=== PATIENT | male | born 1950 | race Caucasian/White ===

== ENCOUNTER 2018-05-19 16:01 | Inpatient (IN) ==
[2018-05-19] MEDS ORDERED: Ringers Solution, Lactated 1,000 ML IVC SCH (17:30)
[2018-05-19] MEDS ORDERED: *HR* HYDROcodone/Acet 5/325 mg TABLET PO PRN (17:37)
[2018-05-19] MEDS ORDERED: Furosemide 40 MG/4 ML VIAL IVP STA (17:42)
[2018-05-19 17:56] LABS: Basophils # 0.1 K/mcL (0.0-0.2); Basophils % 0.9 %; Eosinophils # 0.2 K/mcL (0.0-0.6); Eosinophils % 1.2 %; Hematocrit 37.4 % (37.5-50.1); Hemoglobin 12.4 g/dL (12.9-16.9); Immature Granulocytes % 1.1 % (0-4); Lymphocytes # 1.2 K/mcL (0.6-4.6); Lymphocytes % 9.9 %; Mean Corpuscular HGB Conc 33.2 g/dL (31.6-35.5); Mean Corpuscular Hemoglobin 35.7 pg (28.0-33.3); Mean Corpuscular Volume 107.8 fL (83.0-100.0); Mean Platelet Volume 9.7 fL (9.4-12.4); Monocytes % 8.3 %; Neutrophils # 9.5 K/mcL (1.6-8.9); Nucleated Red Blood Cells 0.4 /100 WBC (0); Platelet Count 228 K/mcL (140-400); Red Blood Count 3.47 M/mcL (4.19-5.50); Red Cell Distribution Width 13.2 % (11.5-14.5); Segmented Neutrophils % 78.6 %
[2018-05-19 18:06] LABS: INR 3.1; Prothrombin Time 35.4 Seconds (9.4-12.1)
[2018-05-19 18:15] LABS: Blood Urea Nitrogen 22 mg/dL (8-23); eGFR For Non-African Americans 54 (> 60)
--- NOTE | 2018-05-19 19:14 | General Surg History&Physical ---
Date of Encounter: 05/19/18 Time of Encounter: 18:52 History of Present Illness Chief complaint: Necrotic wound suprapubic anterior abdominal wall HPI: Mr. Espino is a 67 year old morbidly obese male who presents to my office for continued follow-up serous drainage from the infraumbilical port site. Drainage has diminished. Infraumbilical port site appears to be slowly healing. He is approximately 4 weeks status post laparoscopic cholecystectomy after presenting with severe left sided chest and upper abdominal pain. Those symptoms have subsided since the patient's cholecystectomy but the patient has since developed a slowly increasing necrotic, painful wound suprapubic abdomen. This is located remote to the port sites used to complete the cholecystectomy. Those port sites are located in the infraumbilical abdomen, mid epigastrium, and 3 in the subcostal right upper abdomen. The necrotic wound will require debridement, which is scheduled in the a.m. pending reversal of his anticoagulation Past medical history: Atrial fibrillation requiring chronic anticoagulation; morbid obesity; hypertension; multiple artificial joints; chronic respiratory failure/hypoxia requiring home oxygen; obstructive sleep apnea (CPAP 8); and chronic cholecystitis recently treated via laparoscopic cholecystectomy Allergies: Penicillin Medications: Hydrocodone with acetaminophen 5/325 one every 6 hours as needed for pain Naprosyn 500 mg by mouth twice a day Cardizem 180 mg by mouth twice a day Metoprolol 150 mg by mouth daily Flomax 0.4 mg by mouth daily Zantac 150 mg by mouth twice a day Warfarin 5.5-7.5 mg by mouth daily Lisinopril 20 mg by mouth daily Digoxin 0.125 mg by mouth daily Lasix dose not specified, once daily Viagra 100 mg by mouth daily Surgical history: Excision hyperkeratotic lesion right nose 1999; bilateral equal hernia repair in 1668; pacesetter 2011; left shoulder/rotator cuff repair; bilateral knee arthroscopy left knee 2 right knee 3 followed by right total knee replacement 2012. Carpal tunnel release bilaterally; EGD June 2017; colonoscopy last completed 11/2005; laparoscopic cholecystectomy, 04/19/18 Social history: Patient is , lives with his spouse. He is a current every day smoker using smokeless tobacco. He admits to one can per day for greater than 40 years; patient also consumes beer and/or heart alcohol once weekly. Patient does not admit to any illicit drug use. Physical examination: Obese, age-appropriate male in distress related to his lower abdominal pain. He is 1.83 m tall, 152.5 kg; BMI 45.6 Vital signs on admission are still pending at the time of this dictation Skin: Warm, no obvious jaundice Lungs: Clear, no abdominal pain deep inspiration Cardiac: Irregular rate, approximately 80 bpm Abdomen: Obese, bowel sounds. Approximately a 4 cm round necrotic wound suprapubic anterior abdominal wall - this lesion is excised exquisitely tender. The dependent portion of the abdomen demonstrates edema and port [place] consistent with extensive or excessive subcutaneous fluid. Port sites: Infraumbilical, mid epigastric, epigastric, and 2 along the right costal margin appeared to be intact. The infraumbilical port is draining a small amount of serous, alvin fluid Extremities: 1+ pitting edema to the knees Laboratories: White count 12.1, neutrophils 9.5 hemoglobin 12.4, hematocrit 37.4, platelets 228,000 PT 35.4, INR 3.1 BUN 22, creatinine 1.32 (creatinine 1.27 on 01/30/18) CT abdomen and pelvis completed 05/16/18 was reviewed with [facility] this AM - Findings include: Infraumbilical fluid and induration; liver, spleen, pa ncreas, and left adrenal appear normal; a stable heterogeneous fatty right adrenal mass measuring 82 x 48 mm consistent with a myelolipoma; gallbladder is surgically absent with evidence of a hematoma in the gallbladder fossa; there is fluid surrounding the liver and spleen consistent with ascites. Impression: 67-year-old morbidly obese patient of Dr. Lane, presents to my office for continued post operative follow-up laparoscopic cholecystectomy completed 04/19/18. Patient has had copious serous drainage from the infraumbilical port site which has regressed over the last week. The patient now presents with a painful approximately 4 cm, suprapubic, necrotic wound anterior abdominal wall which will require debridement. The patient is chronically anticoagulated with warfarin, he is currently supratherapeutic with PT 35.4, INR 3.1 Aggressive reversal of this will be completed this evening with fresh frozen plasma in preparation for surgery in the a.m. Risks of debridement include hemorrhage, infection, failure to heal, and continued infection/necrosis. The patient is at additional risk for respiratory failure and cardiac dysrhythmia. Surgical consent was discussed in detail in my office prior to his direct admit to [facility]. A signed consent with admission orders has been sent to [facility] with the patient patient to [facility]. Past Med Surg Social Fam HX - Past Medical History Medical history: hypertension Additional medical history: A. FIB, SLEEP APNEA, BPH, OSTEOARTHRITIS, JOSÉ, GERD, ROTATOR CUFF Psychiatric history: no psych history - Past Surgical History Surgical History: herniorrhaphy, orthopedic, other, pacemaker/AICD, other Additional surgical history: t&a, REPAIR OF KNEE, KNEE ARTHROPLASTY, ANDRY INGUINAL HERNIA, COLONOSCOPY, RIGHT TKR, PACEMAKER - Social History Smoking Status: Never smoker Smokeless Tobacco Status: No Alcohol use: none Drug use: none Medications and Allergies Digoxin [Lanoxin] 0.125 mg PO DAILY 07/08/17 [History] Diltiazem CD (24hr) [Cardizem CD] 180 mg PO DAILY 07/08/17 [History] HYDROcodone/Acet 5/325 mg [Errol 5-325 mg] 1 tab PO Q6H PRN 07/08/17 [History] Lisinopril [Zestril] 20 mg PO DAILY 07/08/17 [History] Metoprolol Succinate 100 mg PO DAILY 07/08/17 [History] Metoprolol XL (24 HR) Succ [Toprol Xl] 50 mg PO DAILY 07/08/17 [History] Multivitamin [One Daily Essential] 1 tab PO DAILY 07/08/17 [History] Mv-Min/FA/Vit K/Lycop/Lut/Zeax [Ocuvite Eye Plus Multi Tablet] 1 tab PO DAILY 07/08/17 [History] Naproxen [Naprosyn] 500 mg PO BID 07/08/17 [History] Tamsulosin [Flomax] 0.4 mg PO HS 07/08/17 [History] Warfarin [Coumadin] 5 mg PO AD 07/08/17 [History] raNITIdine HCl [Zantac] 150 mg PO BID 07/08/17 [History] Citalopram Hydrobromide [Citalopram HBr] 20 mg PO DAILY 04/19/18 [History] Doxycycline Hyclate [Morgidox] 100 mg PO DAILY 04/19/18 [History] Furosemide [Lasix] 40 mg PO DAILY 04/19/18 [History] Sildenafil Citrate [Revatio] 20 mg PO TID 10/31/18 [History] Allergy/AdvReac Type Severity Reaction Status Date / Time Penicillins [PCN] Allergy See Verified 07/08/17 11:17 Comments Review of Systems All systems PM: The remainder of the systems were reviewed and are negative Results - Labs 05/19/18 17:43 05/19/18 17:43 Abnormal lab results WBC 12.1 K/mcL (4.3-11.1) H 05/19/18 17:43 RBC 3.47 M/mcL (4.19-5.50) L 05/19/18 17:43 Hgb 12.4 g/dL (12.9-16.9) L 05/19/18 17:43 Hct 37.4 % (37.5-50.1) L 05/19/18 17:43 MCV 107.8 fL (83.0-100.0) H 05/19/18 17:43 MCH 35.7 pg (28.0-33.3) H 05/19/18 17:43 Neutrophils # 9.5 K/mcL (1.6-8.9) H 05/19/18 17:43 Nucleated RBCs/100 WBC 0.4 /100 WBC (0) H 05/19/18 17:43 PT 35.4 Seconds (9.4-12.1) H 05/19/18 17:43 Creatinine 1.32 mg/dL (0.70-1.30) H 05/19/18 17:43 Est GFR (Non-Af Amer) 54 (> 60) L 05/19/18 17:43 Diabetes panel 05/19/18 05/19/18 Range/Units 17:43 17:43 BUN 22 (8-23) mg/dL Creatinine 1.32 H (0.70-1.30) mg/dL Pituitary panel 05/19/18 05/19/18 Range/Units 17:43 17:43 BUN 22 (8-23) mg/dL Creatinine 1.32 H (0.70-1.30) mg/dL Adrenal panel 05/19/18 05/19/18 Range/Units 17:43 17:43 BUN 22 (8-23) mg/dL Creatinine 1.32 H (0.70-1.30) mg/dL All other labs normal.
[2018-05-19] MEDS ORDERED: Levofloxacin 750 MG/150 ML 750 MG/150 ML BAG IVPB SCH (20:00)
[2018-05-19] MEDS ORDERED: Diltiazem CD (24hr) 180 MG CAPSULE PO SCH (21:00)
[2018-05-19] MEDS ORDERED: 0.9 % Sodium Chloride 250 ML ONE (21:38)
[2018-05-20] MEDS ORDERED: 0.9 % Sodium Chloride 250 ML ONE ×2 (01:43→08:10)
[2018-05-20 04:48] LABS: Basophils # 0.1 K/mcL (0.0-0.2); Basophils % 0.9 %; Eosinophils # 0.2 K/mcL (0.0-0.6); Eosinophils % 1.8 %; Hematocrit 33.8 % (37.5-50.1); Hemoglobin 11.5 g/dL (12.9-16.9); Immature Granulocytes % 0.8 % (0-4); Lymphocytes % 9.7 %; Mean Corpuscular Hemoglobin 36.1 pg (28.0-33.3); Mean Platelet Volume 9.8 fL (9.4-12.4); Monocytes % 8.9 %; Neutrophils # 8.4 K/mcL (1.6-8.9); Nucleated Red Blood Cells 0.3 /100 WBC (0); Platelet Count 213 K/mcL (140-400); Red Blood Count 3.19 M/mcL (4.19-5.50); Red Cell Distribution Width 13.2 % (11.5-14.5); Segmented Neutrophils % 77.9 %
[2018-05-20 04:55] LABS: INR 2.6; Prothrombin Time 28.9 Seconds (9.4-12.1)
[2018-05-20 05:07] LABS: BUN/Creatinine Ratio 18 (6-26); Blood Urea Nitrogen 22 mg/dL (8-23); Calcium 8.6 mg/dL (8.6-10.3); Carbon Dioxide 29 mEq/L (23-29); Chloride 102 mEq/L (98-107); Glucose 119 mg/dL (70-105); Osmolality,Calculated 292 (280-300); Potassium 3.8 mEq/L (3.5-5.1); Sodium 139 mEq/L (136-145); eGFR For Non-African Americans > 60 (> 60)
--- NOTE | 2018-05-20 08:09 | Anesthesia Evaluation PreOp ---
Date of Encounter: 05/20/18 Time of Encounter: 09:10 - Past History Planned Operation: Abdominal wall debridement Cardiac History: Arrhythmia, Pacemaker/ICD Pulmonary History: COPD, JOSÉ Dx FIELD SERVICE SPECIALIST History: Denies Any Significant HX Other Medical History: GERD, Other (BMI 47) Anesthesia History: No Prior Anesthetic Complications, Past Anesthesia Alcohol Use: none, rarely, occasionally Drug use: none Medications and Allergies Digoxin [Lanoxin] 0.125 mg PO DAILY 07/08/17 [History] Diltiazem CD (24hr) [Cardizem CD] 180 mg PO DAILY 07/08/17 [History] HYDROcodone/Acet 5/325 mg [Art 5-325 mg] 1 tab PO Q6H PRN 07/08/17 [History] Lisinopril [Zestril] 20 mg PO DAILY 07/08/17 [History] Metoprolol Succinate 100 mg PO DAILY 07/08/17 [History] Metoprolol XL (24 HR) Succ [Toprol Xl] 50 mg PO DAILY 07/08/17 [History] Multivitamin [One Daily Essential] 1 tab PO DAILY 07/08/17 [History] Mv-Min/FA/Vit K/Lycop/Lut/Zeax [Ocuvite Eye Plus Multi Tablet] 1 tab PO DAILY 07/08/17 [History] Naproxen [Naprosyn] 500 mg PO BID 07/08/17 [History] Tamsulosin [Flomax] 0.4 mg PO HS 07/08/17 [History] Warfarin [Coumadin] 5 mg PO AD 07/08/17 [History] raNITIdine HCl [Zantac] 150 mg PO BID 07/08/17 [History] Citalopram Hydrobromide [Citalopram HBr] 20 mg PO DAILY 04/19/18 [History] Doxycycline Hyclate [Morgidox] 100 mg PO DAILY 04/19/18 [History] Furosemide [Lasix] 40 mg PO DAILY 04/19/18 [History] Sildenafil Citrate [Revatio] 20 mg PO TID 04/19/18 [History] Allergy/AdvReac Type Severity Reaction Status Date / Time Penicillins [PCN] Allergy See Verified 07/08/17 11:17 Comments - Meds/Allergy Pre-op Review Medications Reviewed: Yes Allergies Reviewed: Yes Beta Blockers on Current Med List: Yes If Beta Blockers taken, Date/Time (Last Dose taken): 05-20-18 metoprolol 7:58 Anesthesia Results - Labs 05/20/18 04:18 05/20/18 04:18 - Imaging EKG: report reviewed, image reviewed (ATRIAL FIBRILLATION ST DEVIATION AND MODERATE T-WAVE ABNORMALITY, CONSIDER LATERAL ISCHEMIA ST DEVIATION AND MODERATE T-WAVE ABNORMALITY, CONSIDER INFERIOR ISCHEMIA) Anesthesia Exam Last Vital Signs Temp 98.5 F 05/20/18 06:32 Pulse 84 05/20/18 06:32 Resp 18 05/20/18 06:32 BP 128/71 05/20/18 06:32 Pulse Ox 95 05/20/18 06:32 Weight: 153 kg NPO (# of Hours): > 8 hrs - HEENT Pupil (Motor): Pupils equal, EOMI Mallampati: II Teeth: Normal Oral Opening: Greater than 3 - FIELD SERVICE SPECIALIST LOC: Oriented - Cardiac Rhythm: Irregular Murmur: None - Pulmonary Breath Sounds: bilateral Clear Respiratory Effort: Symmetrical Anesthesia Assess/Plan ASA Score: 3 Level of consciousness: Cooperative Anesthetic Plan: General Monitoring Plan: Standard Monitors Recovery Plan: PACU
[2018-05-20] MEDS ORDERED: Ondansetron 4 MG/2 ML VIAL ONE (08:25)
[2018-05-20] MEDS ORDERED: *HR* Succinylcholine 200 MG/10 ML VIAL IVP ONE (08:25)
[2018-05-20] MEDS ORDERED: Lidocaine -MPF 2% 2 ML VIAL ONE (08:25)
[2018-05-20] MEDS ORDERED: Dexamethasone 4 MG/ML VIAL ONE (08:25)
[2018-05-20] MEDS ORDERED: Lidocaine -MPF 4% 5 ML AMPUL ONE (08:25)
[2018-05-20] MEDS ORDERED: *HR* Propofol 200 MG/20 ML VIAL IVP ONE (08:27)
[2018-05-20] MEDS ORDERED: *HR* FentaNYL (PF) 100 MCG/2 ML VIAL ONE (08:27)
[2018-05-20] MEDS ORDERED: Lisinopril 20 MG TABLET PO SCH (09:00)
[2018-05-20] MEDS ORDERED: hydroCHLOROthiazide 25 MG TABLET PO SCH (09:00)
[2018-05-20] MEDS ORDERED: Metoprolol 100 MG TABLET PO SCH ×2 (09:00)
[2018-05-20] MEDS ORDERED: Diltiazem CD (24hr) 180 MG CAPSULE PO SCH (09:00)
[2018-05-20] MEDS ORDERED: Levofloxacin 750 MG/150 ML 750 MG/150 ML BAG IVPB SCH (09:00)
[2018-05-20] MEDS ORDERED: *HR* Digoxin 0.125 MG TABLET PO SCH (09:00)
[2018-05-20] MEDS ORDERED: *HR* OxyCODONE Immed Rel 5 MG TABLET PO PRN (09:39)
[2018-05-20] MEDS ORDERED: *HR* Meperidine 25 MG/ML SYRINGE IVP PRN (09:39)
[2018-05-20] MEDS ORDERED: *HR* Promethazine 25 MG/ML VIAL IVP PRN (09:39)
[2018-05-20] MEDS ORDERED: *HR* HYDROmorphone (PF) 1 MG/ML SYRINGE IVP PRN (09:39)
--- NOTE | 2018-05-20 09:59 | Operative Note ---
Date of procedure: 05/20/18 Pre-op diagnosis: Necrotic wound suprapubic anterior abdominal wall Post-op diagnosis: same (4 cm in diameter, 9 cm distal to the umbilicus) Procedure: Excision necrotic wound suprapubic anterior abdominal wall Complications: None apparent Anesthesia: GETA Surgeon: Sherman Hercules Was there an health education assistant present: No Estimated blood loss (cc): 2 IV fluids (cc): 300 Specimen: aerobic and anaerobic cultures Condition: stable Disposition: PACU Procedure in Detail: The patient was brought to the operating room and placed supine on the procedure table. The patient was appropriately identified to person and procedure. The accuracy of this information was confirmed by the patient and procedure team. The patient was intubated and anesthetized under the supervision of Dr. Marisela Cheatham. The abdomen was prepped and draped in usual sterile fashion. A 4 cm circular necrotic wound was apparent bupivacaine anterior abdominal wall. With compression purulent drainage was extruded. Aerobic and anaerobic cultures were obtained. An elliptical excision was then initiated around this necrotic wound. The skin was incised with a #10 scalpel. The incision was extended into the subcutaneous tissue. The wound appeared to be superficial without penetrating the abdominal wall to the fascia. There was no tracking or tunneling. The abscess was elliptically excised and sent to pathology. Bleeding points were controlled electrocautery. The ends of the wound were approximated with interrupted 2-0 Ethilon. The central portion of the wound was packed open with 4 x 4 Maxsorb AG. A dry sterile dressing was applied. The patient was taken to recovery in stable condition. Needle, sponge, and instrument counts were correct at the close of the case.
[2018-05-20] MEDS ORDERED: Ringers Solution, Lactated 1,000 ML IVC SCH (10:36)
[2018-05-20] MEDS ORDERED: Vancomycin 1 EACH in 0.9 % Sodium Chloride 250 ML IVPB SCH (10:36)
[2018-05-20] MEDS ORDERED: *HR* HYDROcodone/Acet 5/325 mg TABLET PO PRN (10:36)
[2018-05-20] MEDS: Furosemide 40 MG TABLET PO SCH ×2 (11:34→18:09)
--- NOTE | 2018-05-20 11:48 | Anesthesia Evaluation Post Op ---
Date of Encounter: 05/20/18 Time of Encounter: 10:25 - Vital Signs Vital Signs: Last Vital Signs Temp 97.7 F 05/20/18 10:40 Pulse 72 05/20/18 10:40 Resp 16 05/20/18 10:40 BP 102/66 05/20/18 10:40 Pulse Ox 94 05/20/18 10:24 - Lungs Lungs: Clear Ascult./Percussion - Airway Airway: Non-obstructed - Cardiovascular Regular Rate - Mental Status Mental Status: Alert & Oriented, Answers Appropriately - Pain Pain Scale: 2 - Nausea Vomiting Nausea Vomiting: Not Present - Hydration Hydration: NPO - Discharge PostOp Status: Transfer Patient to floor
[2018-05-21 06:55] LABS: Basophils % 0.3 %; Eosinophils % 0.1 %; Hematocrit 33.1 % (37.5-50.1); Hemoglobin 11.1 g/dL (12.9-16.9); Immature Granulocytes % 1.1 % (0-4); Lymphocytes # 0.6 K/mcL (0.6-4.6); Mean Corpuscular HGB Conc 33.5 g/dL (31.6-35.5); Mean Corpuscular Hemoglobin 35.8 pg (28.0-33.3); Mean Corpuscular Volume 106.8 fL (83.0-100.0); Mean Platelet Volume 10.2 fL (9.4-12.4); Monocytes # 0.7 K/mcL (0.0-1.3); Monocytes % 6.2 %; Neutrophils # 9.1 K/mcL (1.6-8.9); Platelet Count 223 K/mcL (140-400); Red Cell Distribution Width 13.1 % (11.5-14.5); Segmented Neutrophils % 86.3 %
[2018-05-21 07:03] LABS: Prothrombin Time 23.1 Seconds (9.4-12.1)
[2018-05-21 07:14] LABS: BUN/Creatinine Ratio 16 (6-26); Blood Urea Nitrogen 18 mg/dL (8-23); Calcium 8.4 mg/dL (8.6-10.3); Carbon Dioxide 31 mEq/L (23-29); Chloride 103 mEq/L (98-107); Glucose 179 mg/dL (70-105); Osmolality,Calculated 298 (280-300); Potassium 4.1 mEq/L (3.5-5.1); Sodium 141 mEq/L (136-145); eGFR For Non-African Americans > 60 (> 60)
[2018-05-21] MEDS: Metoprolol 100 MG TABLET PO SCH (09:26)
[2018-05-21] MEDS: Lisinopril 20 MG TABLET PO SCH (09:26)
[2018-05-21] MEDS: Furosemide 40 MG TABLET PO SCH ×2 (09:26→18:00)
[2018-05-21] MEDS: *HR* Digoxin 0.125 MG TABLET PO SCH (09:26)
[2018-05-21] MEDS: Diltiazem CD (24hr) 180 MG CAPSULE PO SCH (09:26)
[2018-05-21] MEDS: Levofloxacin 750 MG/150 ML 750 MG/150 ML BAG IVPB SCH (09:27)
--- NOTE | 2018-05-21 09:42 | General Surgery Progress Note ---
Date of Encounter: 05/21/18 Time of Encounter: 09:34 Subjective Patient reports: feels better, pain is less Narrative: General Surgery - POD #1 Patient complaining of pain but admittedly it is significantly diminished since surgery. The patient remains afebrile, hemodynamically stable - temperature 97.7, pulse irregular, 73-97, respiratory rate 16 and unlabored, blood pressure 155/76 Lungs: Clear Abdomen: Obese, soft, nontender with no peritoneal signs. Active bowel sounds. Patient tolerating diet, no complaints of nausea or vomiting Infraumbilical incision (port site) continues to drain serous fluid. MaxSorb dressing changed and reapplied. Suprapubic wound anterior abdominal wall: Healthy appearance; MaxSorb dressing changed and reapplied. Urine output: 3250 mL for calendar day 05/20/18; 1900 mL so far today Laboratories: WBC 10.5, neutrophils 9.1 hemoglobin 11.1, hematocrit 33.1. Platelet count 223,000. PT 23.1, INR 2.0 Electrolytes normal, bicarbonate 31, BUN 18, creatinine 1.15 Operative cultures: Pending Impression/Plan: 67-year-old morbidly obese patient, postoperative day #1, status post debridement necrotic suprapubic wound anterior abdominal wall. Wound clean and dry with no further necrosis. Continue vancomycin and Levaquin pending operative cultures results Postoperative status acceptable Continue wound care with dressing changes as needed Atrial fibrillation with chronic anticoagulation - current INR 2.0. Continue to hold Coumadin Hypertension - controlled Obstructive sleep apnea - status stable; patient using CPAP at night Objective Vital Signs - Last 8 Hours Temp Pulse Resp BP Pulse Ox 05/21/18 06:49 97.7 F 73 16 155/76 95 05/21/18 03:01 97.6 F 83 16 137/78 96 Intake and Output 05/20/18 05/21/18 05/21/18 23:59 07:59 15:59 Intake Total 360 / 360 1180 / 1180 Output Total 1999 Balance -1640 / -1640 -720 / -720 Intake: IV Fluids 1180 / 1180 Vancocin 1,500 MG In 0.9 % 250 / 250 Sodium Chloride 250 ML @ 166.67 mls/hr IVPB Q12H [facility] Rx#: [id number] Oral 360 / 360 0 / 0 Output: Urine 1999 Other: Meal Dinner keeping tray Percent of Meal Consumed 100% # Bowel Movements 0 Weight 149.8 kg Blood Glucose* 158 146 Patient Weight 05/21/18 23:59 Weight 149.8 kg - Labs 05/21/18 06:05 05/21/18 06:05 Diabetes panel 05/21/18 Range/Units 06:05 Sodium 141 (136-145) mEq/L Potassium 4.1 (3.5-5.1) mEq/L Chloride 103 (98-107) mEq/L Carbon Dioxide 31 H (23-29) mEq/L BUN 18 (8-23) mg/dL Creatinine 1.15 (0.70-1.30) mg/dL Glucose 179 H (70-105) mg/dL Calcium 8.4 L (8.6-10.3) mg/dL Calcium panel 05/21/18 Range/Units 06:05 Calcium 8.4 L (8.6-10.3) mg/dL Pituitary panel 05/21/18 Range/Units 06:05 Sodium 141 (136-145) mEq/L Potassium 4.1 (3.5-5.1) mEq/L Chloride 103 (98-107) mEq/L Carbon Dioxide 31 H (23-29) mEq/L BUN 18 (8-23) mg/dL Creatinine 1.15 (0.70-1.30) mg/dL Glucose 179 H (70-105) mg/dL Calcium 8.4 L (8.6-10.3) mg/dL Adrenal panel 05/21/18 Range/Units 06:05 Sodium 141 (136-145) mEq/L Potassium 4.1 (3.5-5.1) mEq/L Chloride 103 (98-107) mEq/L Carbon Dioxide 31 H (23-29) mEq/L BUN 18 (8-23) mg/dL Creatinine 1.15 (0.70-1.30) mg/dL Glucose 179 H (70-105) mg/dL Calcium 8.4 L (8.6-10.3) mg/dL Consult Discharge Plan - Plan Referrals: Sherman Hercules MD [Non-Partnered Physician] - Bang aLne Jr, MD [Partnered Physician] -
[2018-05-22 04:20] LABS: Basophils # 0.1 K/mcL (0.0-0.2); Basophils % 0.7 %; Eosinophils # 0.2 K/mcL (0.0-0.6); Eosinophils % 2.2 %; Hemoglobin 11.5 g/dL (12.9-16.9); Immature Granulocytes % 1.5 % (0-4); Lymphocytes # 1.3 K/mcL (0.6-4.6); Lymphocytes % 13.1 %; Mean Corpuscular HGB Conc 32.9 g/dL (31.6-35.5); Mean Corpuscular Hemoglobin 35.4 pg (28.0-33.3); Mean Corpuscular Volume 107.7 fL (83.0-100.0); Mean Platelet Volume 9.7 fL (9.4-12.4); Monocytes # 0.6 K/mcL (0.0-1.3); Monocytes % 6.5 %; Neutrophils # 7.3 K/mcL (1.6-8.9); Nucleated Red Blood Cells 0.2 /100 WBC (0); Platelet Count 227 K/mcL (140-400); Red Blood Count 3.25 M/mcL (4.19-5.50)
[2018-05-22 04:34] LABS: INR 1.7; Prothrombin Time 19.7 Seconds (9.4-12.1)
[2018-05-22] MEDS: Furosemide 40 MG TABLET PO SCH (08:27)
[2018-05-22] MEDS: Diltiazem CD (24hr) 180 MG CAPSULE PO SCH (08:27)
[2018-05-22] MEDS: Lisinopril 20 MG TABLET PO SCH (08:27)
[2018-05-22] MEDS: *HR* Digoxin 0.125 MG TABLET PO SCH (08:27)
[2018-05-22] MEDS: Metoprolol 100 MG TABLET PO SCH (08:27)
[2018-05-22] MEDS: Levofloxacin 750 MG/150 ML 750 MG/150 ML BAG IVPB SCH (08:28)
[2018-05-22 11:14] VITALS: BP 126/78
--- NOTE | 2018-05-22 13:09 | General Surgery Progress Note ---
Date of Encounter: 05/22/18 Time of Encounter: 12:56 Subjective Patient reports: no new complaints, feels better Narrative: General Surgery - POD #2 Progress Note / Discharge Summary Patient feeling well, voicing no complaints. Afebrile, currently 98.4, hemodynamically stable - pulse 77, respirations 15, blood pressure 126/78. Lungs: Clear Abdomen: Obese but soft, nontender. Infraumbilical port site appears clean and dry. The MaxSorb dressing is dry The suprapubic wound is also clean and dry. No purulence detected on the dressings. Dressings to both the infraumbilical port site in the suprapubic wound were changed. Operative cultures yielded methicillin-resistant staph aureus. Sensitivities include Cipro and Levaquin, gentamicin, linezolid, moxifloxacin, Rifampin; TMP- sulfa. Laboratories: White count 9.6, differential within normal limits, previous neutrophilia resolved, currently 7.3 hemoglobin 11.5, hematocrit 35.0. Impression: Methicillin-resistant staph aureus superficial infection suprapubic anterior abdominal wall. Likely due to persistent drainage from the infraumbilical port site following laparoscopic cholecystectomy. This resulted in maceration of the suprapubic anterior abdominal wall and subsequent superficial infection. Discussed briefly with Dr. Pollard - he is recommending Bactrim DS BID based on the information I provided. Plan: Discharge home Outpatient follow up May 26 Prescription for Bactrim DS 1 by mouth twice a day for the next 12 days to complete a 14 day course of therapy. Brief history /Discharge Summary 67-year-old male, admitted 05/19/18 after presenting to my office with a necrotic, 4 cm circular wound/abscess suprapubic anterior abdominal wall. The patient is approximately 4 weeks status post laparoscopic cholecystectomy after presenting with severe left-sided chest pain, epigastric and left upper quadrant abdominal pain. The symptoms were atypical but ultimately identified the hepatobiliary in origin. Laparoscopic cholecystectomy was completed 8. The patient had resolution of his left-sided chest pain and epigastric pain and left upper quadrant abdominal pain, however, demonstrated copious serous drainage from the infraumbilical port site. This appeared to be ascites from fluid overload. The patient ultimately developed maceration of the anterior abdominal wall and subsequent infection prompting his presentation to my office on 05/19/18. The patient was direct admitted to [facility] for IV antibiotics and surgical debridement. The patient was chronically anticoagulated due to his atrial fibrillation. It was necessary to reverse his anticoagulation before completing the surgical debridement, 05/20/18. Operative cultures have yielded a methicillin resistance staph aureus with treatment plan described above. The patient was discharged home in stable condition He may resume his usual home meds including anticoagulation (warfarin) Discharge diagnoses Methicillin-resistant staph aureus infection suprapubic anterior abdominal wa ll Chronic atrial fibrillation requiring chronic anticoagulation Pacer Morbid obesity, hypertension, chronic respiratory failure/hypoxia requiring home oxygen Obstructive sleep apnea (CPAP 8) Fluid overload with lower extremity edema and Drew teal fluid causing chronic drainage from the infraumbilical port site. The fluid overload status has been improved with twice a day Lasix. Surgery: Debridement 4 cm superficial necrotic abscess suprapubic anterior abdominal wall. Status on discharge: Satisfactory Objective Vital Signs - Last 8 Hours Temp Pulse Resp BP Pulse Ox 05/22/18 10:30 98.4 F 77 15 126/78 96 05/22/18 07:10 97.8 F 78 16 140/80 98 Intake and Output 05/21/18 05/22/18 05/22/18 23:59 07:59 15:59 Intake Total 1250 / 1250 1650 / 1650 630 / 630 Output Total 450 / 450 1575 / 1575 Balance 800 / 800 75 / 75 630 / 630 Intake: IV Fluids 250 / 250 250 / 250 150 / 150 Levaquin Premix 750mg/150 mL 150 / 150 750 mg In 150 ml @ 100 mls/hr IVPB DAILY [facility] Rx#:[id number] Vancocin 1,500 MG In 0.9 % 250 / 250 250 / 250 Sodium Chloride 250 ML @ 166.67 mls/hr IVPB Q12H [facility] Rx#: [id number] Oral 1000 / 1000 1400 / 1400 480 / 480 Output: Urine 450 / 450 1575 / 1575 Other: Meal Breakfast Percent of Meal Consumed 100% Stool Size Copious Stool Consistency soft formed Stool Color Brown # Voids 1 Blood Glucose* 119 - Labs 05/22/18 04:00 05/21/18 06:05 Consult Discharge Plan - Plan Referrals: Sherman Hercules MD [Non-Partnered Physician] - Bang Lane Jr, MD [Partnered Physician] -
--- NOTE | 2018-05-22 13:25 | Discharge Summary ---
Outpatient Proc Discharge Plan - Plan Additional Instructions: regular diet activities as tolerated patient to keep wounds anterior abdominal wall clean and dry patient may shower, wash incision with soap and water patient to resume home meds including Warfarin outpatient follow up in the office, 05/26/2018 Rx Bactrim DS 1 po BID x 12 days to complete a 14 day course of therapy Prescriptions: Sulfamethoxazole/Trimeth DS [Bactrim Ds] 1 each PO BID 12 Days #24 tablet Home Medications: Digoxin [Lanoxin] 0.125 mg PO DAILY 07/08/17 [History] Diltiazem CD (24hr) [Cardizem CD] 180 mg PO DAILY 07/08/17 [History] HYDROcodone/Acet 5/325 mg [[place] 5-325 mg] 1 tab PO Q6H PRN 07/08/17 [History] Lisinopril [Zestril] 20 mg PO DAILY 07/08/17 [History] Metoprolol Succinate 100 mg PO DAILY 07/08/17 [History] Metoprolol XL (24 HR) Succ [Toprol Xl] 50 mg PO DAILY 07/08/17 [History] Multivitamin [One Daily Essential] 1 tab PO DAILY 07/08/17 [History] Mv-Min/FA/Vit K/Lycop/Lut/Zeax [Ocuvite Eye Plus Multi Tablet] 1 tab PO DAILY 07/08/17 [History] Naproxen [Naprosyn] 500 mg PO BID 07/08/17 [History] Tamsulosin [Flomax] 0.4 mg PO HS 07/08/17 [History] Warfarin [Coumadin] 5 mg PO AD 07/08/17 [History] raNITIdine HCl [Zantac] 150 mg PO BID 07/08/17 [History] Citalopram Hydrobromide [Citalopram HBr] 20 mg PO DAILY 04/19/18 [History] Doxycycline Hyclate [Morgidox] 100 mg PO DAILY 04/19/18 [History] Furosemide [Lasix] 40 mg PO DAILY 04/19/18 [History] Sulfamethoxazole/Trimeth DS [Bactrim Ds] 1 each PO BID 12 Days #24 tablet 05/22/18 [Rx]
[2018-05-22] MEDS ORDERED: Aminoglycoside Consult 1 EACH MC ONE (14:51)
== END 2018-05-22 14:52 | disposition home or self-care (01) | DRG 857 ==
LOC: 3ANU 16:39
PROVIDERS: ADMIT Surgery; ATTEND Surgery

== ENCOUNTER 2020-08-11 10:06 | Inpatient (IN) ==
[2020-08-11 10:49] LABS: Basophils # 0.1 K/mcL (0.0-0.2); Basophils % 0.8 %; Eosinophils # 0.2 K/mcL (0.0-0.6); Eosinophils % 1.1 %; Hematocrit 31.5 % (37.5-50.1); Immature Granulocytes % 0.7 % (0-4); Lymphocytes # 0.7 K/mcL (0.6-4.6); Lymphocytes % 4.7 %; Mean Corpuscular HGB Conc 31.7 g/dL (31.6-35.5); Mean Corpuscular Hemoglobin 34.6 pg (28.0-33.3); Mean Platelet Volume 9.6 fL (9.4-12.4); Monocytes # 0.8 K/mcL (0.0-1.3); Monocytes % 5.7 %; Neutrophils # 12.4 K/mcL (1.6-8.9); Nucleated Red Blood Cells 0.4 /100 WBC (0); Platelet Count 288 K/mcL (140-400); Red Blood Count 2.89 M/mcL (4.19-5.50); Red Cell Distribution Width 13.7 % (11.5-14.5); White Blood Count 14.2 K/mcL (4.3-11.1)
[2020-08-11 11:15] LABS: Albumin 4.2 g/dL (3.5-5.7); Albumin/Globulin Ratio 1.2 (1.1-2.2); Bilirubin,Total 0.9 mg/dL (0.3-1.0); Globulin 3.5 g/dL (2.4-3.5); Total Protein 7.7 g/dL (6.4-8.9)
[2020-08-11] MEDS ORDERED: 0.9 % Sodium Chloride 1,000 ML IV ONE (11:22)
[2020-08-11] MEDS ORDERED: Cefepime HCl 1,000 MG in 0.9 % Sodium Chloride Mini Bag 100 ML IVPB ONE (11:24)
[2020-08-11] MEDS ORDERED: Vancomycin 2,000 MG/520 ML IV.SOLN IVPB ONE (11:45)
[2020-08-11] MEDS ORDERED: Acetaminophen 325 MG TABLET PO PRN (12:22)
[2020-08-11] MEDS ORDERED: Naloxone 0.4 MG/ML INJ IVP PRN (12:22)
[2020-08-11] MEDS ORDERED: Ondansetron 4 MG/2 ML VIAL IVP PRN (12:22)
[2020-08-11] MEDS ORDERED: Ringers Solution, Lactated 1,000 ML IVC SCH (12:30)
[2020-08-11] MEDS ORDERED: *HR* Phytonadione 5 MG TABLET PO ONE (13:16)
[2020-08-11] MEDS: MetroNIDAZOLE 500 MG/100 ML 500 MG/100 ML BAG IVPB SCH ×2 (16:05→23:50)
[2020-08-11] MEDS: DilTIAZem CD (24hr) 180 MG CAP.ER.24H PO SCH ×2 (20:55→22:19)
[2020-08-11] MEDS: Famotidine 20 MG TABLET PO SCH (20:55)
[2020-08-12] MEDS ORDERED: Vancomycin 1,500 MG/265 ML IV.SOLN IVPB SCH
[2020-08-12 01:04] LABS: Hemoglobin 8.7 g/dL (12.9-16.9)
[2020-08-12 01:06] LABS: Basophils # 0.1 K/mcL (0.0-0.2); Basophils % 0.8 %; Eosinophils # 0.1 K/mcL (0.0-0.6); Eosinophils % 1.1 %; Hematocrit 26.2 % (37.5-50.1); Immature Granulocytes % 0.6 % (0-4); Immature Platelets 3.2 % (1.1-6.1); Lymphocytes # 0.7 K/mcL (0.6-4.6); Lymphocytes % 5.6 %; Mean Corpuscular HGB Conc 33.2 g/dL (31.6-35.5); Mean Corpuscular Hemoglobin 35.5 pg (28.0-33.3); Mean Corpuscular Volume 106.9 fL (83.0-100.0); Monocytes % 7.6 %; Nucleated Red Blood Cells 0.2 /100 WBC (0); Platelet Count 258 K/mcL (140-400); Red Blood Count 2.45 M/mcL (4.19-5.50); Red Cell Distribution Width 13.8 % (11.5-14.5); Segmented Neutrophils % 84.3 %; White Blood Count 13.1 K/mcL (4.3-11.1)
[2020-08-12 01:08] LABS: Prothrombin Time 33.7 Seconds (9.4-12.1)
[2020-08-12 01:24] LABS: Calcium 8.2 mg/dL (8.6-10.3); Magnesium 1.7 mg/dL (1.6-2.6); Potassium 3.8 mEq/L (3.5-5.1)
[2020-08-12 03:08] LABS: Adenovirus Not Detected (Not Detect); Bordetella Pertussis Not Detected (Not Detect); Chlamydophila pneumoniae Not Detected (Not Detect); Coronavirus 229E Not Detected (Not Detect); Coronavirus HKU1 Not Detected (Not Detect); Coronavirus NL63 Not Detected (Not Detect); Coronavirus OC43 Not Detected (Not Detect); Human Metapneumovirus Not Detected (Not Detect); Human Rhinovirus/Enterovirus Not Detected (Not Detect); Influenza A Subtype 2009 H1 Not Detected (Not Detect); Influenza B Not Detected (Not Detect); Mycoplasma pneumoniae Not Detected (Not Detect); Parainfluenza Virus 1 Not Detected (Not Detect); Parainfluenza Virus 2 Not Detected (Not Detect); Parainfluenza Virus 3 Not Detected (Not Detect); Parainfluenza Virus 4 Not Detected (Not Detect); Respiratory Syncytial Virus Not Detected (Not Detect); SARS-CoV-2 Not Detected (Not Detect)
[2020-08-12] MEDS: DilTIAZem CD (24hr) 180 MG CAP.ER.24H PO SCH ×2 (08:56→20:53)
[2020-08-12] MEDS: MetroNIDAZOLE 500 MG/100 ML 500 MG/100 ML BAG IVPB SCH (08:56)
[2020-08-12] MEDS: Famotidine 20 MG TABLET PO SCH (08:56)
[2020-08-12] MEDS ORDERED: DilTIAZem CD (24hr) 180 MG CAP.ER.24H PO SCH (09:00)
[2020-08-12] MEDS ORDERED: Metoprolol XL (24 HR) Succ 50 MG TAB.ER.24H PO SCH (09:00)
[2020-08-12] MEDS ORDERED: *HR* Digoxin 0.125 MG TABLET PO SCH (09:00)
[2020-08-12] MEDS ORDERED: 0.9 % Sodium Chloride 1,000 ML IVC SCH (12:15)
[2020-08-12] MEDS ORDERED: Lidocaine 1% 0 ML ONE (14:37)
[2020-08-12] MEDS ORDERED: Famotidine 20 MG TABLET PO SCH (16:30)
[2020-08-12] MEDS ORDERED: *HR* Propofol 200 MG/20 ML VIAL IVP ONE ×2 (17:16→17:22)
[2020-08-12] MEDS ORDERED: *HR* Midazolam HCl 2 MG/2 ML VIAL ONE (17:16)
[2020-08-12] MEDS ORDERED: *HR* FentaNYL (PF) 100 MCG/2 ML VIAL ONE (17:16)
[2020-08-12] MEDS ORDERED: Ondansetron 4 MG/2 ML VIAL IVP PRN (18:05)
[2020-08-12] MEDS ORDERED: Naloxone 0.4 MG/ML INJ IVP PRN (18:05)
[2020-08-12] MEDS ORDERED: Acetaminophen 325 MG TABLET PO PRN (18:05)
[2020-08-12] MEDS ORDERED: Vancomycin 1,000 MG, Sodium Chloride IRRigation 1,000 ML IR ONE (18:20)
[2020-08-12] MEDS: 0.9 % Sodium Chloride 1,000 ML IVC SCH (19:07)
[2020-08-12] MEDS: Cefepime HCl 1,000 MG in 0.9 % Sodium Chloride Mini Bag 100 ML IVPB SCH (21:06)
[2020-08-12] MEDS ORDERED: Cefepime HCl 1,000 MG in 0.9 % Sodium Chloride Mini Bag 100 ML IVPB SCH (22:00)
[2020-08-13] MEDS: MetroNIDAZOLE 500 MG/100 ML 500 MG/100 ML BAG IVPB SCH ×2 (00:17→08:25)
[2020-08-13] MEDS: Vancomycin 1,500 MG/265 ML IV.SOLN IVPB SCH (03:29)
[2020-08-13] MEDS: Cefepime HCl 1,000 MG in 0.9 % Sodium Chloride Mini Bag 100 ML IVPB SCH (05:37)
[2020-08-13] MEDS: *HR* Digoxin 0.125 MG TABLET PO SCH (08:20)
[2020-08-13] MEDS: Metoprolol XL (24 HR) Succ 50 MG TAB.ER.24H PO SCH (08:21)
[2020-08-13] MEDS: Famotidine 20 MG TABLET PO SCH ×2 (08:21→16:03)
[2020-08-13] MEDS: DilTIAZem CD (24hr) 180 MG CAP.ER.24H PO SCH ×2 (08:21→22:30)
[2020-08-13] MEDS: 0.9 % Sodium Chloride 1,000 ML IVC SCH (09:33)
[2020-08-13 11:33] LABS: Basophils # 0.1 K/mcL (0.0-0.2); Basophils % 0.9 %; Eosinophils # 0.3 K/mcL (0.0-0.6); Eosinophils % 3.4 %; Hematocrit 26.7 % (37.5-50.1); Hemoglobin 8.6 g/dL (12.9-16.9); Immature Granulocytes % 0.7 % (0-4); Lymphocytes # 0.5 K/mcL (0.6-4.6); Lymphocytes % 5.5 %; Mean Corpuscular HGB Conc 32.2 g/dL (31.6-35.5); Mean Corpuscular Hemoglobin 34.5 pg (28.0-33.3); Mean Corpuscular Volume 107.2 fL (83.0-100.0); Mean Platelet Volume 9.2 fL (9.4-12.4); Monocytes # 0.7 K/mcL (0.0-1.3); Monocytes % 7.7 %; Neutrophils # 7.1 K/mcL (1.6-8.9); Nucleated Red Blood Cells 0.2 /100 WBC (0); Platelet Count 240 K/mcL (140-400); Red Blood Count 2.49 M/mcL (4.19-5.50); Red Cell Distribution Width 13.6 % (11.5-14.5); Segmented Neutrophils % 81.8 %; White Blood Count 8.6 K/mcL (4.3-11.1)
[2020-08-13 11:36] LABS: INR 1.9; Prothrombin Time 21.5 Seconds (9.4-12.1)
[2020-08-13 11:56] LABS: Calcium 8.4 mg/dL (8.6-10.3); Potassium 3.7 mEq/L (3.5-5.1)
[2020-08-13 13:09] LABS: Folate 11.3 ng/mL (3.0-16.0)
[2020-08-13 14:29] LABS: Bilirubin,Urine Negative (Negative); Blood,Urine Negative (Negative); Clarity,Urine Clear (Clear); Color,Urine Yellow (Yellow); Glucose,Urine (UA) Normal (Normal); Ketones,Urine Negative (Negative); Leukocyte Esterase,Urine Negative (Negative); Nitrite,Urine Negative (Negative); Protein,Urine Trace mg/dL (Neg-Trace); Specific Gravity,Urine 1.022 (1.010-1.025); Urobilinogen,Urine Normal (Normal)
[2020-08-13] MEDS: metroNIDAZOLE 500 MG TABLET PO SCH ×2 (16:03→22:29)
[2020-08-13] MEDS ORDERED: *HR* Warfarin 5 MG TABLET PO ONE (18:00)
[2020-08-13] MEDS ORDERED: Warfarin perPT PO PRN (18:00)
[2020-08-13] MEDS: Cefepime HCl 2,000 MG in Water for inj. (sterile) 20 ML IVP SCH (18:06)
[2020-08-13 20:00] LABS: Estimated Average Glucose 120 mg/dl; Hemoglobin A1C 5.8 %
[2020-08-13] MEDS ORDERED: *HR* HYDROcodone/Acet 5/325 mg TABLET PO PRN (22:37)
[2020-08-14] MEDS: Vancomycin 1,500 MG/265 ML IV.SOLN IVPB SCH (02:44)
[2020-08-14 02:57] LABS: Basophils # 0.1 K/mcL (0.0-0.2); Basophils % 1.1 %; Calcium 8.4 mg/dL (8.6-10.3); Eosinophils # 0.3 K/mcL (0.0-0.6); Eosinophils % 3.8 %; Hemoglobin 8.8 g/dL (12.9-16.9); Immature Granulocytes % 0.9 % (0-4); Lymphocytes # 0.7 K/mcL (0.6-4.6); Lymphocytes % 8.1 %; Mean Corpuscular HGB Conc 32.6 g/dL (31.6-35.5); Mean Corpuscular Hemoglobin 35.6 pg (28.0-33.3); Mean Corpuscular Volume 109.3 fL (83.0-100.0); Mean Platelet Volume 9.5 fL (9.4-12.4); Monocytes # 0.7 K/mcL (0.0-1.3); Monocytes % 8.2 %; Neutrophils # 6.9 K/mcL (1.6-8.9); Nucleated Red Blood Cells 0.2 /100 WBC (0); Platelet Count 269 K/mcL (140-400); Potassium 3.9 mEq/L (3.5-5.1); Red Blood Count 2.47 M/mcL (4.19-5.50); Red Cell Distribution Width 13.4 % (11.5-14.5); Segmented Neutrophils % 77.9 %; White Blood Count 8.9 K/mcL (4.3-11.1)
[2020-08-14 03:03] LABS: INR 1.9; Prothrombin Time 21.5 Seconds (9.4-12.1)
[2020-08-14] MEDS: Famotidine 20 MG TABLET PO SCH ×2 (06:11→16:09)
[2020-08-14] MEDS: Cefepime HCl 2,000 MG in Water for inj. (sterile) 20 ML IVP SCH ×2 (06:11→17:21)
[2020-08-14] MEDS: metroNIDAZOLE 500 MG TABLET PO SCH ×3 (09:06→21:34)
[2020-08-14] MEDS: Metoprolol XL (24 HR) Succ 50 MG TAB.ER.24H PO SCH (09:07)
[2020-08-14] MEDS: DilTIAZem CD (24hr) 180 MG CAP.ER.24H PO SCH ×2 (09:07→21:34)
[2020-08-14] MEDS: *HR* Digoxin 0.125 MG TABLET PO SCH (09:07)
[2020-08-14] MEDS ORDERED: *HR* Warfarin 5 MG TABLET PO ONE (18:00)
[2020-08-14] MEDS: *HR* HYDROcodone/Acet 5/325 mg TABLET PO PRN (23:13)
[2020-08-15 02:53] LABS: Prothrombin Time 23.1 Seconds (9.4-12.1)
[2020-08-15 02:58] LABS: BUN/Creatinine Ratio 14 (6-26); Blood Urea Nitrogen 19 mg/dL (8-23); Calcium 8.6 mg/dL (8.6-10.3); Carbon Dioxide 24 mEq/L (23-29); Chloride 103 mEq/L (98-107); Glucose 140 mg/dL (70-105); Osmolality,Calculated 285 (280-300); Potassium 3.7 mEq/L (3.5-5.1); Sodium 135 mEq/L (136-145); eGFR For African Americans > 60 (> 60); eGFR For Non-African Americans 54 (> 60)
[2020-08-15 03:28] LABS: White Blood Count 8.3 K/mcL (4.3-11.1)
[2020-08-15 03:29] LABS: Basophils # 0.1 K/mcL (0.0-0.2); Basophils % 1.1 %; Eosinophils # 0.3 K/mcL (0.0-0.6); Eosinophils % 3.7 %; Hematocrit 28.8 % (37.5-50.1); Hemoglobin 9.3 g/dL (12.9-16.9); Immature Granulocytes % 1.1 % (0-4); Lymphocytes # 0.9 K/mcL (0.6-4.6); Mean Corpuscular HGB Conc 32.3 g/dL (31.6-35.5); Mean Corpuscular Hemoglobin 35.1 pg (28.0-33.3); Mean Corpuscular Volume 108.7 fL (83.0-100.0); Mean Platelet Volume 9.4 fL (9.4-12.4); Monocytes # 0.6 K/mcL (0.0-1.3); Monocytes % 7.5 %; Neutrophils # 6.3 K/mcL (1.6-8.9); Nucleated Red Blood Cells 0.2 /100 WBC (0); Platelet Count 288 K/mcL (140-400); Red Blood Count 2.65 M/mcL (4.19-5.50); Red Cell Distribution Width 13.4 % (11.5-14.5); Segmented Neutrophils % 75.6 %
[2020-08-15 04:03] LABS: Lambda Qnt Free Light Chains 23.7 mg/L (5.71-26.30)
[2020-08-15] MEDS: Cefepime HCl 2,000 MG in Water for inj. (sterile) 20 ML IVP SCH ×2 (05:31→17:22)
[2020-08-15] MEDS: Metoprolol XL (24 HR) Succ 50 MG TAB.ER.24H PO SCH (08:00)
[2020-08-15] MEDS: *HR* Digoxin 0.125 MG TABLET PO SCH (08:01)
[2020-08-15] MEDS: Famotidine 20 MG TABLET PO SCH ×2 (08:01→14:46)
[2020-08-15] MEDS: metroNIDAZOLE 500 MG TABLET PO SCH ×3 (08:01→19:50)
[2020-08-15] MEDS: DilTIAZem CD (24hr) 180 MG CAP.ER.24H PO SCH ×2 (08:01→19:50)
[2020-08-15 10:25] LABS: Kappa Qnt Free Light Chains 48.2 mg/L (3.30-19.40)
[2020-08-15 14:47] LABS: ANA IgG by ELISA NONE DETECTED (None Detected)
[2020-08-15] MEDS: Furosemide 40 MG TABLET PO SCH (15:12)
[2020-08-15] MEDS ORDERED: *HR* Warfarin 2.5 MG TABLET PO ONE (18:00)
[2020-08-15 18:26] LABS: Adenovirus F 40/41 PCR Not detected (Not detect); Astrovirus PCR Not detected (Not detect); C.difficile Toxin A/B Gene PCR Not detected (Not detect); Campylobacter by PCR Not detected (Not detect); Cryptosporidium by PCR Not detected (Not detect); Cyclospora cayetanensis PCR Not detected (Not detect); E. coli O157 by PCR Not detected (Not detect); Entamoeba histolytica PCR Not detected (Not detect); Enteroaggregative E.coli(EAEC) Not detected (Not detect); Enteropathogenic E.coli(EPEC) Not detected (Not detect); Enterotoxigenic E.coli (ETEC) Not detected (Not detect); Giardia lamblia PCR Not detected (Not detect); Norovirus GI/GII PCR Not detected (Not detect); Plesiomonas shigelloides PCR Not detected (Not detect); Rotavirus A PCR Not detected (Not detect); Salmonella PCR Not detected (Not detect); Sapovirus PCR Not detected (Not detect); Shig/EnteroinvasiveE coli EIEC Not detected (Not detect); Shigalike tox-prod E coli STEC Not detected (Not detect); Vibrio PCR Not detected (Not detect); Vibrio cholerae PCR Not detected (Not detect); Yersinia enterocolitica PCR Not detected (Not detect)
[2020-08-15] MEDS: MetroNIDAZOLE 500 MG/100 ML 500 MG/100 ML BAG IVPB SCH (18:58)
[2020-08-15] MEDS: *HR* HYDROcodone/Acet 5/325 mg TABLET PO PRN (19:49)
[2020-08-15] MEDS: Lactobacillus 1 EACH CAP.SPRINK PO SCH (19:50)
[2020-08-16 04:53] LABS: Basophils # 0.1 K/mcL (0.0-0.2); Basophils % 1.3 %; Eosinophils # 0.4 K/mcL (0.0-0.6); Eosinophils % 4.7 %; Hematocrit 28.5 % (37.5-50.1); Hemoglobin 9.3 g/dL (12.9-16.9); Immature Granulocytes % 1.5 % (0-4); Lymphocytes # 0.9 K/mcL (0.6-4.6); Lymphocytes % 11.3 %; Mean Corpuscular HGB Conc 32.6 g/dL (31.6-35.5); Mean Corpuscular Hemoglobin 35.1 pg (28.0-33.3); Mean Corpuscular Volume 107.5 fL (83.0-100.0); Mean Platelet Volume 9.2 fL (9.4-12.4); Monocytes # 0.6 K/mcL (0.0-1.3); Monocytes % 7.9 %; Neutrophils # 5.8 K/mcL (1.6-8.9); Nucleated Red Blood Cells 0.5 /100 WBC (0); Platelet Count 284 K/mcL (140-400); Red Blood Count 2.65 M/mcL (4.19-5.50); Red Cell Distribution Width 13.6 % (11.5-14.5); Segmented Neutrophils % 73.3 %; White Blood Count 7.9 K/mcL (4.3-11.1)
[2020-08-16 04:54] LABS: INR 2.4; Prothrombin Time 27.4 Seconds (9.4-12.1)
[2020-08-16 05:09] LABS: BUN/Creatinine Ratio 14 (6-26); Blood Urea Nitrogen 17 mg/dL (8-23); Calcium 8.8 mg/dL (8.6-10.3); Carbon Dioxide 24 mEq/L (23-29); Chloride 104 mEq/L (98-107); Glucose 107 mg/dL (70-105); Osmolality,Calculated 284 (280-300); Potassium 3.7 mEq/L (3.5-5.1); Sodium 136 mEq/L (136-145); eGFR For African Americans > 60 (> 60); eGFR For Non-African Americans > 60 (> 60)
[2020-08-16] MEDS: Cefepime HCl 2,000 MG in Water for inj. (sterile) 20 ML IVP SCH (05:17)
[2020-08-16 07:19] VITALS: BP 136/70
[2020-08-16] MEDS: *HR* Digoxin 0.125 MG TABLET PO SCH (08:18)
[2020-08-16] MEDS: Lactobacillus 1 EACH CAP.SPRINK PO SCH (08:18)
[2020-08-16] MEDS: Furosemide 40 MG TABLET PO SCH (08:18)
[2020-08-16] MEDS: DilTIAZem CD (24hr) 180 MG CAP.ER.24H PO SCH (08:18)
[2020-08-16] MEDS: Metoprolol XL (24 HR) Succ 50 MG TAB.ER.24H PO SCH (08:18)
[2020-08-16] MEDS: Famotidine 20 MG TABLET PO SCH (08:18)
[2020-08-16] MEDS: metroNIDAZOLE 500 MG TABLET PO SCH (08:18)
[2020-08-16] MEDS ORDERED: *HR* Warfarin 2.5 MG TABLET PO ONE (18:00)
[2020-08-16] MEDS ORDERED: Cefdinir 300 MG CAPSULE PO SCH (21:00)
== END 2020-08-16 12:52 | disposition home health service (06) | DRG 571 ==
LOC: EMEROOARM 10:06 → 2ANU 10:06 → SUATTDRO 08-12 12:13
PROVIDERS: ADMIT Internal Medicine; ATTEND General Practice

== ENCOUNTER 2020-09-02 11:59 | Inpatient (IN) ==
[~2020-09-02 11:59] MED LIST: MetroNIDAZOLE 500 MG/100 ML 500 MG/100 ML BAG IVPB SCH
[2020-09-02] MEDS ORDERED: Isovue-370 500 ML BOTTLE IVP ONE (16:10)
[2020-09-02] MEDS ORDERED: 0.9 % Sodium Chloride 500 ML IVC ONE (16:11)
[2020-09-02] MEDS ORDERED: Piperacillin/Tazobactam 3.375 GM in 0.9 % Sodium Chloride Mini Bag 100 ML IVPB ONE (17:09)
[2020-09-02] MEDS ORDERED: Ondansetron 4 MG/2 ML VIAL IVP PRN (17:54)
[2020-09-02 17:56] LABS: Calcium 9.2 mg/dL (8.6-10.3); Potassium 3.6 mEq/L (3.5-5.1)
[2020-09-02] MEDS ORDERED: Vancomycin 2,000 MG/520 ML IV.SOLN IVPB ONE (18:00)
[2020-09-02 18:02] LABS: INR 1.8
[2020-09-02 18:05] LABS: Activated Partial Thrombo Time 31.4 Seconds (26.0-36.0)
[2020-09-02 18:06] LABS: Basophils # 0.1 K/mcL (0.0-0.2); Basophils % 1.1 %; Eosinophils # 0.3 K/mcL (0.0-0.6); Eosinophils % 4.3 %; Hematocrit 31.4 % (37.5-50.1); Hemoglobin 10.2 g/dL (12.9-16.9); Immature Granulocytes % 0.7 % (0-4); Lymphocytes # 1.1 K/mcL (0.6-4.6); Lymphocytes % 16.1 %; Mean Corpuscular HGB Conc 32.5 g/dL (31.6-35.5); Mean Corpuscular Hemoglobin 34.6 pg (28.0-33.3); Mean Corpuscular Volume 106.4 fL (83.0-100.0); Mean Platelet Volume 8.8 fL (9.4-12.4); Monocytes # 0.5 K/mcL (0.0-1.3); Monocytes % 6.8 %; Nucleated Red Blood Cells 0.3 /100 WBC (0); Platelet Count 221 K/mcL (140-400); Red Blood Count 2.95 M/mcL (4.19-5.50); Red Cell Distribution Width 14.1 % (11.5-14.5)
[2020-09-02] MEDS ORDERED: MetroNIDAZOLE 500 MG/100 ML 500 MG/100 ML BAG IVPB SCH (18:06)
[2020-09-02] MEDS: cefTAZidime 2,000 MG in Water for inj. (sterile) 20 ML IVP SCH (21:10)
[2020-09-02] MEDS ORDERED: *HR* OxyCODONE Immed Rel 5 MG TABLET PO PRN (22:33)
[2020-09-02] MEDS: DilTIAZem CD (24hr) 180 MG CAP.ER.24H PO SCH (23:16)
[2020-09-03] MEDS ORDERED: Piperacillin/Tazobactam 3.375 GM in 0.9 % Sodium Chloride Mini Bag 100 ML IVPB SCH
[2020-09-03 01:13] LABS: Hematocrit 36.9 % (37.5-50.1); Hemoglobin 11.8 g/dL (12.9-16.9); Mean Corpuscular Volume 109.5 fL (83.0-100.0); Mean Platelet Volume 9.3 fL (9.4-12.4); Platelet Count 267 K/mcL (140-400); Red Blood Count 3.37 M/mcL (4.19-5.50); Red Cell Distribution Width 14.3 % (11.5-14.5)
[2020-09-03 01:26] LABS: BUN/Creatinine Ratio 12 (6-26); Blood Urea Nitrogen 17 mg/dL (8-23); Calcium 8.8 mg/dL (8.6-10.3); Carbon Dioxide 26 mEq/L (23-29); Chloride 103 mEq/L (98-107); Glucose 118 mg/dL (70-105); INR 1.8; Osmolality,Calculated 289 (280-300); Potassium 3.5 mEq/L (3.5-5.1); Prothrombin Time 20.3 Seconds (9.4-12.1); Sodium 138 mEq/L (136-145); eGFR For African Americans > 60 (> 60); eGFR For Non-African Americans 51 (> 60)
[2020-09-03] MEDS: cefTAZidime 2,000 MG in Water for inj. (sterile) 20 ML IVP SCH ×2 (05:28→12:36)
[2020-09-03] MEDS: MetroNIDAZOLE 500 MG/100 ML 500 MG/100 ML BAG IVPB SCH ×2 (05:31→12:37)
[2020-09-03] MEDS ORDERED: Vancomycin 2,000 MG/520 ML IV.SOLN IVPB ONE (06:00)
[2020-09-03] MEDS: Vancomycin 1,500 MG/265 ML IV.SOLN IVPB SCH (06:42)
[2020-09-03] MEDS ORDERED: NON-FORMULARY MEDICATION 1 EACH EACH (Metoprolol Succinate [Toprol Xl] 100 MG Tab.Er.24h) PO SCH (09:00)
[2020-09-03] MEDS: DilTIAZem CD (24hr) 180 MG CAP.ER.24H PO SCH ×2 (10:16→21:09)
[2020-09-03] MEDS: Furosemide 40 MG TABLET PO SCH ×2 (10:16→21:09)
[2020-09-03] MEDS: Famotidine 20 MG TABLET PO SCH ×2 (10:16→21:09)
[2020-09-03] MEDS: Metoprolol XL (24 HR) Succ 50 MG TAB.ER.24H PO SCH (10:16)
[2020-09-03] MEDS: *HR* Digoxin 0.125 MG TABLET PO SCH (10:17)
[2020-09-03] MEDS: Lactobacillus 1 EACH CAP.SPRINK PO SCH ×2 (12:37→21:09)
[2020-09-03 13:55] LABS: Adenovirus Not Detected (Not Detect); Bordetella Pertussis Not Detected (Not Detect); Chlamydophila pneumoniae Not Detected (Not Detect); Coronavirus 229E Not Detected (Not Detect); Coronavirus HKU1 Not Detected (Not Detect); Coronavirus NL63 Not Detected (Not Detect); Coronavirus OC43 Not Detected (Not Detect); Human Metapneumovirus Not Detected (Not Detect); Human Rhinovirus/Enterovirus Not Detected (Not Detect); Influenza A Subtype 2009 H1 Not Detected (Not Detect); Influenza B Not Detected (Not Detect); Mycoplasma pneumoniae Not Detected (Not Detect); Parainfluenza Virus 1 Not Detected (Not Detect); Parainfluenza Virus 2 Not Detected (Not Detect); Parainfluenza Virus 3 Not Detected (Not Detect); Parainfluenza Virus 4 Not Detected (Not Detect); Respiratory Syncytial Virus Not Detected (Not Detect); SARS-CoV-2 Not Detected (Not Detect)
[2020-09-03] MEDS: Meropenem 1,000 MG in 0.9 % Sodium Chloride Mini Bag 100 ML IVPB SCH (17:37)
[2020-09-04] MEDS: Meropenem 1,000 MG in 0.9 % Sodium Chloride Mini Bag 100 ML IVPB SCH ×4 (00:21→23:33)
[2020-09-04 01:26] LABS: Basophils # 0.1 K/mcL (0.0-0.2); Basophils % 0.9 %; Eosinophils # 0.4 K/mcL (0.0-0.6); Eosinophils % 4.5 %; Hematocrit 34.3 % (37.5-50.1); Hemoglobin 10.9 g/dL (12.9-16.9); Immature Granulocytes % 0.9 % (0-4); Lymphocytes # 0.7 K/mcL (0.6-4.6); Lymphocytes % 9.1 %; Mean Corpuscular HGB Conc 31.8 g/dL (31.6-35.5); Mean Corpuscular Hemoglobin 34.3 pg (28.0-33.3); Mean Corpuscular Volume 107.9 fL (83.0-100.0); Mean Platelet Volume 9.4 fL (9.4-12.4); Monocytes # 0.5 K/mcL (0.0-1.3); Monocytes % 6.4 %; Neutrophils # 6.3 K/mcL (1.6-8.9); Nucleated Red Blood Cells 0.4 /100 WBC (0); Platelet Count 248 K/mcL (140-400); Red Blood Count 3.18 M/mcL (4.19-5.50); Red Cell Distribution Width 14.2 % (11.5-14.5); Segmented Neutrophils % 78.2 %
[2020-09-04 01:46] LABS: BUN/Creatinine Ratio 14 (6-26); Blood Urea Nitrogen 19 mg/dL (8-23); Calcium 9.4 mg/dL (8.6-10.3); Carbon Dioxide 27 mEq/L (23-29); Chloride 102 mEq/L (98-107); Glucose 105 mg/dL (70-105); Osmolality,Calculated 289 (280-300); Potassium 3.6 mEq/L (3.5-5.1); Sodium 138 mEq/L (136-145); eGFR For African Americans > 60 (> 60); eGFR For Non-African Americans 52 (> 60)
[2020-09-04] MEDS: Vancomycin 1,500 MG/265 ML IV.SOLN IVPB SCH (06:19)
[2020-09-04] MEDS: Lactobacillus 1 EACH CAP.SPRINK PO SCH ×2 (08:22→20:27)
[2020-09-04] MEDS: Famotidine 20 MG TABLET PO SCH ×2 (08:22→20:27)
[2020-09-04] MEDS: Furosemide 40 MG TABLET PO SCH ×2 (08:22→20:27)
[2020-09-04] MEDS: Metoprolol XL (24 HR) Succ 50 MG TAB.ER.24H PO SCH (08:23)
[2020-09-04] MEDS: DilTIAZem CD (24hr) 180 MG CAP.ER.24H PO SCH ×2 (08:23→20:27)
[2020-09-04] MEDS: *HR* Digoxin 0.125 MG TABLET PO SCH (08:23)
[2020-09-04] MEDS: Acetaminophen 325 MG TABLET PO PRN ×2 (09:09→17:15)
[2020-09-04] MEDS ORDERED: *HR* Propofol 200 MG/20 ML VIAL IVP ONE (12:07)
[2020-09-04] MEDS ORDERED: Lidocaine -MPF 2% 2 ML VIAL ONE (12:07)
[2020-09-05 01:13] LABS: Basophils # 0.1 K/mcL (0.0-0.2); Basophils % 1.4 %; Eosinophils # 0.4 K/mcL (0.0-0.6); Eosinophils % 5.3 %; Hematocrit 33.3 % (37.5-50.1); Hemoglobin 10.9 g/dL (12.9-16.9); Immature Granulocytes % 0.5 % (0-4); Lymphocytes % 12.2 %; Mean Corpuscular HGB Conc 32.7 g/dL (31.6-35.5); Mean Corpuscular Hemoglobin 35.3 pg (28.0-33.3); Mean Corpuscular Volume 107.8 fL (83.0-100.0); Mean Platelet Volume 9.5 fL (9.4-12.4); Monocytes # 0.7 K/mcL (0.0-1.3); Monocytes % 8.4 %; Neutrophils # 5.6 K/mcL (1.6-8.9); Nucleated Red Blood Cells 0.4 /100 WBC (0); Platelet Count 245 K/mcL (140-400); Red Blood Count 3.09 M/mcL (4.19-5.50); Red Cell Distribution Width 14.4 % (11.5-14.5); Segmented Neutrophils % 72.2 %; White Blood Count 7.8 K/mcL (4.3-11.1)
[2020-09-05 01:35] LABS: BUN/Creatinine Ratio 13 (6-26); Blood Urea Nitrogen 17 mg/dL (8-23); Calcium 9.1 mg/dL (8.6-10.3); Carbon Dioxide 28 mEq/L (23-29); Chloride 100 mEq/L (98-107); Glucose 111 mg/dL (70-105); Osmolality,Calculated 288 (280-300); Potassium 3.5 mEq/L (3.5-5.1); Sodium 138 mEq/L (136-145); eGFR For African Americans > 60 (> 60); eGFR For Non-African Americans 56 (> 60)
[2020-09-05] MEDS: Vancomycin 2,000 MG/520 ML IV.SOLN IVPB SCH (06:22)
[2020-09-05] MEDS: Metoprolol XL (24 HR) Succ 50 MG TAB.ER.24H PO SCH (08:36)
[2020-09-05] MEDS: Furosemide 40 MG TABLET PO SCH ×2 (08:37→19:21)
[2020-09-05] MEDS: DilTIAZem CD (24hr) 180 MG CAP.ER.24H PO SCH ×2 (08:37→19:21)
[2020-09-05] MEDS: Lactobacillus 1 EACH CAP.SPRINK PO SCH ×2 (08:37→19:20)
[2020-09-05] MEDS: *HR* Digoxin 0.125 MG TABLET PO SCH (08:38)
[2020-09-05] MEDS: Famotidine 20 MG TABLET PO SCH ×2 (08:38→19:20)
[2020-09-05] MEDS: Meropenem 1,000 MG in 0.9 % Sodium Chloride Mini Bag 100 ML IVPB SCH ×3 (08:48→23:07)
[2020-09-05] MEDS ORDERED: Warfarin perPT PO PRN (18:00)
[2020-09-05] MEDS ORDERED: *HR* Heparin 5,000 UNIT/ML VIAL SQ SCH (21:00)
[2020-09-06 01:15] LABS: Basophils # 0.1 K/mcL (0.0-0.2); Basophils % 1.1 %; Eosinophils # 0.4 K/mcL (0.0-0.6); Eosinophils % 4.3 %; Hematocrit 31.7 % (37.5-50.1); Hemoglobin 10.3 g/dL (12.9-16.9); Immature Granulocytes % 0.7 % (0-4); Lymphocytes # 1.1 K/mcL (0.6-4.6); Lymphocytes % 11.6 %; Mean Corpuscular HGB Conc 32.5 g/dL (31.6-35.5); Mean Corpuscular Hemoglobin 34.1 pg (28.0-33.3); Mean Platelet Volume 9.4 fL (9.4-12.4); Monocytes # 0.8 K/mcL (0.0-1.3); Nucleated Red Blood Cells 0.4 /100 WBC (0); Platelet Count 242 K/mcL (140-400); Red Blood Count 3.02 M/mcL (4.19-5.50); Red Cell Distribution Width 14.4 % (11.5-14.5); Segmented Neutrophils % 74.3 %; White Blood Count 9.5 K/mcL (4.3-11.1)
[2020-09-06 01:23] LABS: INR 1.5; Prothrombin Time 17.5 Seconds (9.4-12.1)
[2020-09-06 01:36] LABS: BUN/Creatinine Ratio 14 (6-26); Blood Urea Nitrogen 18 mg/dL (8-23); Carbon Dioxide 28 mEq/L (23-29); Chloride 101 mEq/L (98-107); Glucose 127 mg/dL (70-105); Osmolality,Calculated 289 (280-300); Potassium 3.5 mEq/L (3.5-5.1); Sodium 138 mEq/L (136-145); eGFR For African Americans > 60 (> 60); eGFR For Non-African Americans 56 (> 60)
[2020-09-06] MEDS: Vancomycin 2,000 MG/520 ML IV.SOLN IVPB SCH (05:16)
[2020-09-06] MEDS: DilTIAZem CD (24hr) 180 MG CAP.ER.24H PO SCH ×2 (09:09→20:00)
[2020-09-06] MEDS: *HR* Digoxin 0.125 MG TABLET PO SCH (09:09)
[2020-09-06] MEDS: Lactobacillus 1 EACH CAP.SPRINK PO SCH ×2 (09:09→20:00)
[2020-09-06] MEDS: Furosemide 40 MG TABLET PO SCH ×2 (09:09→20:00)
[2020-09-06] MEDS: Metoprolol XL (24 HR) Succ 50 MG TAB.ER.24H PO SCH (09:09)
[2020-09-06] MEDS: Famotidine 20 MG TABLET PO SCH ×2 (09:09→20:00)
[2020-09-06] MEDS: Meropenem 1,000 MG in 0.9 % Sodium Chloride Mini Bag 100 ML IVPB SCH ×3 (09:38→23:19)
[2020-09-06] MEDS: Acetaminophen 325 MG TABLET PO PRN (14:37)
[2020-09-06] MEDS ORDERED: Warfarin perPT PO PRN (18:00)
[2020-09-06] MEDS ORDERED: *HR* Warfarin 2.5 MG TABLET PO ONE (18:00)
[2020-09-07 00:37] LABS: Basophils # 0.1 K/mcL (0.0-0.2); Basophils % 1.3 %; Eosinophils # 0.4 K/mcL (0.0-0.6); Eosinophils % 4.7 %; Hemoglobin 10.6 g/dL (12.9-16.9); Immature Granulocytes % 0.8 % (0-4); Lymphocytes # 1.2 K/mcL (0.6-4.6); Mean Corpuscular HGB Conc 32.1 g/dL (31.6-35.5); Mean Corpuscular Hemoglobin 34.6 pg (28.0-33.3); Mean Corpuscular Volume 107.8 fL (83.0-100.0); Mean Platelet Volume 9.2 fL (9.4-12.4); Monocytes # 0.7 K/mcL (0.0-1.3); Monocytes % 8.4 %; Neutrophils # 5.5 K/mcL (1.6-8.9); Nucleated Red Blood Cells 0.4 /100 WBC (0); Platelet Count 229 K/mcL (140-400); Red Blood Count 3.06 M/mcL (4.19-5.50); Red Cell Distribution Width 14.3 % (11.5-14.5); Segmented Neutrophils % 69.8 %; White Blood Count 7.9 K/mcL (4.3-11.1)
[2020-09-07 00:45] LABS: INR 1.5; Prothrombin Time 17.1 Seconds (9.4-12.1)
[2020-09-07 00:55] LABS: BUN/Creatinine Ratio 17 (6-26); Blood Urea Nitrogen 19 mg/dL (8-23); Calcium 9.1 mg/dL (8.6-10.3); Carbon Dioxide 28 mEq/L (23-29); Chloride 101 mEq/L (98-107); Glucose 107 mg/dL (70-105); Osmolality,Calculated 289 (280-300); Potassium 3.4 mEq/L (3.5-5.1); Sodium 138 mEq/L (136-145); eGFR For African Americans > 60 (> 60); eGFR For Non-African Americans > 60 (> 60)
[2020-09-07] MEDS: Vancomycin 1,250 MG/262.5 ML IV.SOLN IVPB SCH ×2 (06:22→17:53)
[2020-09-07] MEDS: Furosemide 40 MG TABLET PO SCH ×2 (09:01→20:25)
[2020-09-07] MEDS: DilTIAZem CD (24hr) 180 MG CAP.ER.24H PO SCH ×2 (09:01→20:25)
[2020-09-07] MEDS: Lactobacillus 1 EACH CAP.SPRINK PO SCH ×2 (09:01→20:25)
[2020-09-07] MEDS: Metoprolol XL (24 HR) Succ 50 MG TAB.ER.24H PO SCH (09:01)
[2020-09-07] MEDS: *HR* Digoxin 0.125 MG TABLET PO SCH (09:01)
[2020-09-07] MEDS: Famotidine 20 MG TABLET PO SCH ×2 (09:01→20:25)
[2020-09-07] MEDS: Meropenem 1,000 MG in 0.9 % Sodium Chloride Mini Bag 100 ML IVPB SCH ×3 (09:02→23:25)
[2020-09-07] MEDS ORDERED: *HR* Warfarin 5 MG TABLET PO ONE (18:00)
[2020-09-08 04:36] LABS: INR 1.4; Prothrombin Time 16.5 Seconds (9.4-12.1)
[2020-09-08 04:47] LABS: BUN/Creatinine Ratio 14 (6-26); Blood Urea Nitrogen 17 mg/dL (8-23); Calcium 9.1 mg/dL (8.6-10.3); Carbon Dioxide 31 mEq/L (23-29); Chloride 100 mEq/L (98-107); Glucose 134 mg/dL (70-105); Osmolality,Calculated 292 (280-300); Potassium 3.5 mEq/L (3.5-5.1); Sodium 139 mEq/L (136-145); eGFR For African Americans > 60 (> 60); eGFR For Non-African Americans > 60 (> 60)
[2020-09-08] MEDS: Vancomycin 1,250 MG/262.5 ML IV.SOLN IVPB SCH ×2 (06:15→18:39)
[2020-09-08] MEDS: Lactobacillus 1 EACH CAP.SPRINK PO SCH ×2 (10:09→20:45)
[2020-09-08] MEDS: Famotidine 20 MG TABLET PO SCH ×2 (10:09→20:45)
[2020-09-08] MEDS: DilTIAZem CD (24hr) 180 MG CAP.ER.24H PO SCH ×2 (10:09→20:46)
[2020-09-08] MEDS: *HR* Digoxin 0.125 MG TABLET PO SCH (10:09)
[2020-09-08] MEDS: Metoprolol XL (24 HR) Succ 50 MG TAB.ER.24H PO SCH (10:10)
[2020-09-08] MEDS: Meropenem 1,000 MG in 0.9 % Sodium Chloride Mini Bag 100 ML IVPB SCH ×3 (10:10→23:13)
[2020-09-08] MEDS: Furosemide 40 MG TABLET PO SCH ×2 (10:10→20:45)
[2020-09-08] MEDS: Acetaminophen 325 MG TABLET PO PRN (10:29)
[2020-09-08] MEDS ORDERED: Loratadine 10 MG TABLET PO ONE (16:50)
[2020-09-08] MEDS ORDERED: *HR* Warfarin 2.5 MG TABLET PO ONE (18:00)
[2020-09-09 01:22] LABS: INR 1.6; Prothrombin Time 17.8 Seconds (9.4-12.1)
[2020-09-09 01:38] LABS: BUN/Creatinine Ratio 13 (6-26); Blood Urea Nitrogen 17 mg/dL (8-23); Calcium 9.5 mg/dL (8.6-10.3); Carbon Dioxide 30 mEq/L (23-29); Chloride 98 mEq/L (98-107); Glucose 99 mg/dL (70-105); Osmolality,Calculated 290 (280-300); Potassium 3.5 mEq/L (3.5-5.1); Sodium 139 mEq/L (136-145); eGFR For African Americans > 60 (> 60); eGFR For Non-African Americans 56 (> 60)
[2020-09-09] MEDS: Vancomycin 1,250 MG/262.5 ML IV.SOLN IVPB SCH (04:54)
[2020-09-09 07:00] VITALS: BP 113/67
[2020-09-09] MEDS: Metoprolol XL (24 HR) Succ 50 MG TAB.ER.24H PO SCH (08:24)
[2020-09-09] MEDS: Famotidine 20 MG TABLET PO SCH (08:25)
[2020-09-09] MEDS: Furosemide 40 MG TABLET PO SCH (08:25)
[2020-09-09] MEDS: DilTIAZem CD (24hr) 180 MG CAP.ER.24H PO SCH (08:25)
[2020-09-09] MEDS: Meropenem 1,000 MG in 0.9 % Sodium Chloride Mini Bag 100 ML IVPB SCH (08:25)
[2020-09-09] MEDS: Lactobacillus 1 EACH CAP.SPRINK PO SCH (08:25)
[2020-09-09] MEDS: *HR* Digoxin 0.125 MG TABLET PO SCH (08:25)
[2020-09-09] MEDS ORDERED: *HR* Warfarin 2.5 MG TABLET PO ONE (18:00)
== END 2020-09-09 12:20 | disposition home health service (06) | DRG 504 ==
LOC: EMEROOARM 11:59 → 3NENU 11:59 → SUATTDRO 18:09 → 3NENU 19:50
PROVIDERS: ADMIT Family Medicine; ATTEND Internal Medicine

== ENCOUNTER 2020-11-02 16:38 | Inpatient (IN) ==
[2020-11-02] MEDS ORDERED: levoFLOXacin 750 MG/150 ML 750 MG/150 ML BAG IVPB ONE (19:55)
[2020-11-02 20:11] LABS: Basophils # 0.1 K/mcL (0.0-0.2); Eosinophils # 0.3 K/mcL (0.0-0.6); Eosinophils % 2.7 %; Hematocrit 35.3 % (37.5-50.1); Hemoglobin 11.6 g/dL (12.9-16.9); Immature Granulocytes % 0.7 % (0-4); Lymphocytes # 1.1 K/mcL (0.6-4.6); Mean Corpuscular HGB Conc 32.9 g/dL (31.6-35.5); Mean Corpuscular Hemoglobin 33.9 pg (28.0-33.3); Mean Corpuscular Volume 103.2 fL (83.0-100.0); Mean Platelet Volume 9.3 fL (9.4-12.4); Monocytes # 0.6 K/mcL (0.0-1.3); Monocytes % 6.5 %; Neutrophils # 7.8 K/mcL (1.6-8.9); Platelet Count 267 K/mcL (140-400); Red Blood Count 3.42 M/mcL (4.19-5.50); Red Cell Distribution Width 13.8 % (11.5-14.5); Segmented Neutrophils % 78.1 %; White Blood Count 9.9 K/mcL (4.3-11.1)
[2020-11-02 20:30] LABS: BUN/Creatinine Ratio 15 (6-26); Blood Urea Nitrogen 20 mg/dL (8-23); C-Reactive Protein 22 mg/L (Less than 10); Calcium 9.4 mg/dL (8.6-10.3); Carbon Dioxide 29 mEq/L (23-29); Chloride 100 mEq/L (98-107); Glucose 97 mg/dL (70-105); Osmolality,Calculated 287 (280-300); Potassium 3.8 mEq/L (3.5-5.1); Sodium 137 mEq/L (136-145); eGFR For African Americans > 60 (> 60); eGFR For Non-African Americans 53 (> 60)
[2020-11-02 21:53] LABS: INR 2.5; Prothrombin Time 28.5 Seconds (9.4-12.1)
[2020-11-03] MEDS ORDERED: Melatonin 3 MG TABLET PO PRN (01:44)
[2020-11-03] MEDS ORDERED: Naloxone 0.4 MG/ML INJ IVP PRN (01:44)
[2020-11-03] MEDS: DilTIAZem CD (24hr) 180 MG CAP.ER.24H PO SCH ×3 (02:53→21:35)
[2020-11-03] MEDS: Furosemide 40 MG TABLET PO SCH ×3 (02:53→21:35)
[2020-11-03] MEDS: Famotidine 20 MG TABLET PO SCH ×3 (02:53→21:35)
[2020-11-03 03:45] LABS: Basophils # 0.1 K/mcL (0.0-0.2); Basophils % 1.3 %; Eosinophils # 0.3 K/mcL (0.0-0.6); Eosinophils % 3.8 %; Hematocrit 35.2 % (37.5-50.1); Immature Granulocytes % 0.9 % (0-4); Lymphocytes # 0.9 K/mcL (0.6-4.6); Lymphocytes % 11.5 %; Mean Corpuscular HGB Conc 31.3 g/dL (31.6-35.5); Mean Corpuscular Volume 105.7 fL (83.0-100.0); Mean Platelet Volume 9.4 fL (9.4-12.4); Monocytes # 0.6 K/mcL (0.0-1.3); Monocytes % 7.9 %; Neutrophils # 5.8 K/mcL (1.6-8.9); Nucleated Red Blood Cells 0.3 /100 WBC (0); Platelet Count 270 K/mcL (140-400); Red Blood Count 3.33 M/mcL (4.19-5.50); Red Cell Distribution Width 13.7 % (11.5-14.5); Segmented Neutrophils % 74.6 %; White Blood Count 7.8 K/mcL (4.3-11.1)
[2020-11-03 03:54] LABS: INR 2.3; Prothrombin Time 26.5 Seconds (9.4-12.1)
[2020-11-03 04:11] LABS: BUN/Creatinine Ratio 13 (6-26); Blood Urea Nitrogen 17 mg/dL (8-23); Calcium 9.2 mg/dL (8.6-10.3); Carbon Dioxide 29 mEq/L (23-29); Chloride 100 mEq/L (98-107); Glucose 118 mg/dL (70-105); Osmolality,Calculated 289 (280-300); Potassium 4.1 mEq/L (3.5-5.1); Sodium 138 mEq/L (136-145); eGFR For African Americans > 60 (> 60); eGFR For Non-African Americans 54 (> 60)
[2020-11-03] MEDS: Acetaminophen 325 MG TABLET PO PRN ×2 (06:51→13:39)
[2020-11-03] MEDS ORDERED: Metoprolol XL (24 HR) Succ 50 MG TAB.ER.24H PO SCH (09:00)
[2020-11-03] MEDS: levoFLOXacin 750 MG/150 ML 750 MG/150 ML BAG IVPB SCH (09:27)
[2020-11-03] MEDS: *HR* Digoxin 0.125 MG TABLET PO SCH (09:27)
[2020-11-03] MEDS ORDERED: Metoprolol XL (24 HR) Succ 50 MG TAB.ER.24H PO ONE (13:54)
[2020-11-03] MEDS ORDERED: *HR* Warfarin 2.5 MG TABLET PO ONE (18:00)
[2020-11-03] MEDS ORDERED: Warfarin perPT PO PRN (18:13)
[2020-11-04 04:11] LABS: Basophils # 0.1 K/mcL (0.0-0.2); Basophils % 1.2 %; Eosinophils # 0.3 K/mcL (0.0-0.6); Eosinophils % 3.8 %; Hematocrit 36.3 % (37.5-50.1); Hemoglobin 11.5 g/dL (12.9-16.9); Immature Granulocytes % 0.7 % (0-4); Lymphocytes # 0.9 K/mcL (0.6-4.6); Lymphocytes % 13.2 %; Mean Corpuscular HGB Conc 31.7 g/dL (31.6-35.5); Mean Corpuscular Hemoglobin 33.1 pg (28.0-33.3); Mean Corpuscular Volume 104.6 fL (83.0-100.0); Mean Platelet Volume 9.4 fL (9.4-12.4); Monocytes # 0.5 K/mcL (0.0-1.3); Monocytes % 7.7 %; Neutrophils # 5.1 K/mcL (1.6-8.9); Platelet Count 273 K/mcL (140-400); Red Blood Count 3.47 M/mcL (4.19-5.50); Red Cell Distribution Width 13.8 % (11.5-14.5); Segmented Neutrophils % 73.4 %; White Blood Count 6.9 K/mcL (4.3-11.1)
[2020-11-04 04:22] LABS: INR 2.1; Prothrombin Time 23.6 Seconds (9.4-12.1)
[2020-11-04 04:30] LABS: Calcium 9.5 mg/dL (8.6-10.3); Potassium 3.9 mEq/L (3.5-5.1)
[2020-11-04] MEDS: *HR* Digoxin 0.125 MG TABLET PO SCH (10:36)
[2020-11-04] MEDS: DilTIAZem CD (24hr) 180 MG CAP.ER.24H PO SCH ×2 (10:36→20:00)
[2020-11-04] MEDS: Metoprolol XL (24 HR) Succ 50 MG TAB.ER.24H PO SCH (10:36)
[2020-11-04] MEDS: Furosemide 40 MG TABLET PO SCH ×2 (10:36→20:00)
[2020-11-04] MEDS: Famotidine 20 MG TABLET PO SCH ×2 (10:36→20:00)
[2020-11-04] MEDS: levoFLOXacin 750 MG/150 ML 750 MG/150 ML BAG IVPB SCH (12:07)
[2020-11-04] MEDS: Acetaminophen 325 MG TABLET PO PRN (15:18)
[2020-11-04] MEDS ORDERED: *HR* Phytonadione 5 MG TABLET PO ONE (17:10)
[2020-11-04] MEDS: cefTRIAXone 2,000 MG in 0.9 % Sodium Chloride Mini Bag 100 ML IVPB SCH (17:58)
[2020-11-05 02:22] LABS: Basophils # 0.1 K/mcL (0.0-0.2); Eosinophils # 0.3 K/mcL (0.0-0.6); Eosinophils % 3.3 %; Hematocrit 35.7 % (37.5-50.1); Hemoglobin 11.6 g/dL (12.9-16.9); Immature Granulocytes % 0.6 % (0-4); Lymphocytes # 1.1 K/mcL (0.6-4.6); Lymphocytes % 14.2 %; Mean Corpuscular HGB Conc 32.5 g/dL (31.6-35.5); Mean Corpuscular Hemoglobin 33.5 pg (28.0-33.3); Mean Corpuscular Volume 103.2 fL (83.0-100.0); Mean Platelet Volume 9.2 fL (9.4-12.4); Monocytes # 0.6 K/mcL (0.0-1.3); Monocytes % 7.2 %; Neutrophils # 5.9 K/mcL (1.6-8.9); Platelet Count 262 K/mcL (140-400); Red Blood Count 3.46 M/mcL (4.19-5.50); Red Cell Distribution Width 13.5 % (11.5-14.5); Segmented Neutrophils % 73.7 %
[2020-11-05 02:28] LABS: INR 2.3; Prothrombin Time 25.7 Seconds (9.4-12.1)
[2020-11-05 02:38] LABS: Calcium 9.5 mg/dL (8.6-10.3); Magnesium 1.9 mg/dL (1.6-2.6); Potassium 3.7 mEq/L (3.5-5.1)
[2020-11-05] MEDS: cefTRIAXone 2,000 MG in 0.9 % Sodium Chloride Mini Bag 100 ML IVPB SCH (08:38)
[2020-11-05] MEDS: DilTIAZem CD (24hr) 180 MG CAP.ER.24H PO SCH ×2 (08:41→20:55)
[2020-11-05] MEDS: *HR* Digoxin 0.125 MG TABLET PO SCH (08:41)
[2020-11-05] MEDS: Metoprolol XL (24 HR) Succ 50 MG TAB.ER.24H PO SCH (08:41)
[2020-11-05] MEDS: Famotidine 20 MG TABLET PO SCH ×2 (08:41→20:55)
[2020-11-05] MEDS: Furosemide 40 MG TABLET PO SCH ×2 (08:41→20:55)
[2020-11-05 10:35] LABS: INR 1.9; Prothrombin Time 22.1 Seconds (9.4-12.1)
[2020-11-05 17:20] LABS: INR 1.8; Prothrombin Time 20.1 Seconds (9.4-12.1)
[2020-11-05] MEDS ORDERED: *HR* Phytonadione 5 MG TABLET PO ONE (17:35)
[2020-11-06 07:27] LABS: Basophils # 0.1 K/mcL (0.0-0.2); Eosinophils # 0.2 K/mcL (0.0-0.6); Eosinophils % 2.8 %; Hematocrit 34.7 % (37.5-50.1); Hemoglobin 11.4 g/dL (12.9-16.9); Immature Granulocytes % 0.8 % (0-4); Lymphocytes % 12.8 %; Mean Corpuscular HGB Conc 32.9 g/dL (31.6-35.5); Mean Corpuscular Hemoglobin 33.8 pg (28.0-33.3); Mean Platelet Volume 9.3 fL (9.4-12.4); Monocytes # 0.6 K/mcL (0.0-1.3); Platelet Count 261 K/mcL (140-400); Red Blood Count 3.37 M/mcL (4.19-5.50); Red Cell Distribution Width 13.5 % (11.5-14.5); Segmented Neutrophils % 75.6 %; White Blood Count 7.9 K/mcL (4.3-11.1)
[2020-11-06 07:39] LABS: INR 1.4; Prothrombin Time 15.6 Seconds (9.4-12.1)
[2020-11-06 08:19] LABS: Calcium 9.5 mg/dL (8.6-10.3); Potassium 3.6 mEq/L (3.5-5.1)
[2020-11-06] MEDS: Metoprolol XL (24 HR) Succ 50 MG TAB.ER.24H PO SCH (09:02)
[2020-11-06] MEDS: DilTIAZem CD (24hr) 180 MG CAP.ER.24H PO SCH ×2 (09:02→20:33)
[2020-11-06] MEDS: Famotidine 20 MG TABLET PO SCH ×2 (09:02→20:33)
[2020-11-06] MEDS: cefTRIAXone 2,000 MG in 0.9 % Sodium Chloride Mini Bag 100 ML IVPB SCH (09:02)
[2020-11-06] MEDS: Furosemide 40 MG TABLET PO SCH ×2 (09:02→20:33)
[2020-11-06] MEDS: *HR* Digoxin 0.125 MG TABLET PO SCH (09:02)
[2020-11-06] MEDS: Acetaminophen 325 MG TABLET PO PRN (09:53)
[2020-11-06] MEDS ORDERED: Ondansetron 4 MG/2 ML VIAL ONE (13:26)
[2020-11-06] MEDS ORDERED: *HR* FentaNYL (PF) 100 MCG/2 ML VIAL ONE (13:26)
[2020-11-06] MEDS ORDERED: *HR* Propofol 200 MG/20 ML VIAL IVP ONE (13:26)
[2020-11-06] MEDS ORDERED: Lidocaine -MPF 2% 2 ML VIAL ONE (13:26)
[2020-11-06] MEDS ORDERED: Lidocaine 1% 20 ML MDV ONE (13:35)
[2020-11-06] MEDS ORDERED: Ringers Solution, Lactated 1,000 ML ONE (15:13)
[2020-11-06] MEDS ORDERED: Acetaminophen 325 MG TABLET PO PRN (16:35)
[2020-11-06] MEDS ORDERED: Melatonin 3 MG TABLET PO PRN (16:35)
[2020-11-06] MEDS ORDERED: Naloxone 0.4 MG/ML INJ IVP PRN (16:35)
[2020-11-07 01:27] LABS: Basophils % 0.3 %; Hematocrit 32.7 % (37.5-50.1); Hemoglobin 10.9 g/dL (12.9-16.9); Immature Granulocytes % 0.6 % (0-4); Lymphocytes # 0.5 K/mcL (0.6-4.6); Lymphocytes % 4.1 %; Mean Corpuscular HGB Conc 33.3 g/dL (31.6-35.5); Mean Corpuscular Volume 101.9 fL (83.0-100.0); Mean Platelet Volume 9.5 fL (9.4-12.4); Monocytes # 0.2 K/mcL (0.0-1.3); Monocytes % 1.4 %; Neutrophils # 11.2 K/mcL (1.6-8.9); Platelet Count 260 K/mcL (140-400); Red Blood Count 3.21 M/mcL (4.19-5.50); Red Cell Distribution Width 13.2 % (11.5-14.5); Segmented Neutrophils % 93.6 %
[2020-11-07 01:34] LABS: INR 1.5; Prothrombin Time 16.6 Seconds (9.4-12.1)
[2020-11-07 01:43] LABS: BUN/Creatinine Ratio 18 (6-26); Blood Urea Nitrogen 24 mg/dL (8-23); Carbon Dioxide 30 mEq/L (23-29); Chloride 99 mEq/L (98-107); Glucose 160 mg/dL (70-105); Osmolality,Calculated 293 (280-300); Potassium 3.9 mEq/L (3.5-5.1); Sodium 138 mEq/L (136-145); eGFR For African Americans > 60 (> 60); eGFR For Non-African Americans 53 (> 60)
[2020-11-07] MEDS: Famotidine 20 MG TABLET PO SCH (08:55)
[2020-11-07] MEDS: Furosemide 40 MG TABLET PO SCH (08:56)
[2020-11-07] MEDS: DilTIAZem CD (24hr) 180 MG CAP.ER.24H PO SCH (08:56)
[2020-11-07] MEDS ORDERED: *HR* Digoxin 0.125 MG TABLET PO SCH (09:00)
[2020-11-07] MEDS ORDERED: Metoprolol XL (24 HR) Succ 50 MG TAB.ER.24H PO SCH (09:00)
[2020-11-07] MEDS ORDERED: cefTRIAXone 2,000 MG in 0.9 % Sodium Chloride Mini Bag 100 ML IVPB SCH (09:00)
[2020-11-07 11:18] VITALS: BP 121/67
== END 2020-11-07 19:10 | disposition home or self-care (01) | DRG 475 ==
LOC: EMEROOARM 16:38 → 3NENU 16:38 → OBSVTOIN 22:45 → SUATTDRO 22:45 → 3NENU 23:04
PROVIDERS: ADMIT Family Medicine; ATTEND Family Medicine

== ENCOUNTER 2021-09-19 15:55 | Inpatient (IN) ==
[2021-09-19 16:39] LABS: Basophils # 0.1 K/mcL (0.0-0.2); Basophils % 1.1 %; Eosinophils # 0.3 K/mcL (0.0-0.6); Eosinophils % 3.1 %; Hematocrit 33.5 % (37.5-50.1); Hemoglobin 11.1 g/dL (12.9-16.9); Lymphocytes # 0.8 K/mcL (0.6-4.6); Lymphocytes % 8.1 %; Mean Corpuscular HGB Conc 33.1 g/dL (31.6-35.5); Mean Corpuscular Hemoglobin 35.8 pg (28.0-33.3); Mean Corpuscular Volume 108.1 fL (83.0-100.0); Mean Platelet Volume 9.1 fL (9.4-12.4); Monocytes # 0.7 K/mcL (0.0-1.3); Neutrophils # 8.1 K/mcL (1.6-8.9); Nucleated Red Blood Cells 0.4 /100 WBC (0); Platelet Count 331 K/mcL (140-400); Red Cell Distribution Width 13.4 % (11.5-14.5); Segmented Neutrophils % 78.7 %; White Blood Count 10.3 K/mcL (4.3-11.1)
[2021-09-19 16:47] LABS: INR 2.2; Prothrombin Time 24.7 Seconds (9.4-12.1)
[2021-09-19 16:50] LABS: Activated Partial Thrombo Time 32.9 Seconds (26.0-36.0)
[2021-09-19 16:59] LABS: Calcium 9.3 mg/dL (8.6-10.3); Potassium 3.9 mEq/L (3.5-5.1)
[2021-09-19] MEDS ORDERED: cefTRIAXone 2,000 MG in 0.9 % Sodium Chloride Mini Bag 100 ML IVPB ONE (17:22)
[2021-09-19] MEDS ORDERED: Vancomycin 2,000 MG/520 ML IV.SOLN IVPB ONE (17:27)
[2021-09-19] MEDS ORDERED: Melatonin 3 MG TABLET PO PRN (18:00)
[2021-09-19] MEDS ORDERED: Naloxone 0.4 MG/ML INJ IVP PRN (18:00)
[2021-09-19] MEDS ORDERED: 0.9 % Sodium Chloride 1,000 ML IVC SCH (19:30)
[2021-09-19] MEDS: Famotidine 20 MG TABLET PO SCH (20:26)
[2021-09-19] MEDS: DilTIAZem CD (24hr) 180 MG CAP.ER.24H PO SCH (22:32)
[2021-09-19] MEDS: Furosemide 40 MG TABLET PO SCH (22:33)
[2021-09-20 04:48] LABS: Hematocrit 32.3 % (37.5-50.1); Hemoglobin 10.9 g/dL (12.9-16.9); Mean Corpuscular HGB Conc 33.7 g/dL (31.6-35.5); Mean Corpuscular Hemoglobin 35.5 pg (28.0-33.3); Mean Corpuscular Volume 105.2 fL (83.0-100.0); Mean Platelet Volume 9.3 fL (9.4-12.4); Platelet Count 313 K/mcL (140-400); Red Blood Count 3.07 M/mcL (4.19-5.50); Red Cell Distribution Width 13.2 % (11.5-14.5); White Blood Count 12.3 K/mcL (4.3-11.1)
[2021-09-20 05:02] LABS: Calcium 9.4 mg/dL (8.6-10.3); Magnesium 1.8 mg/dL (1.6-2.6); Phosphorous 3.8 mg/dL (2.7-4.5); Potassium 4.1 mEq/L (3.5-5.1)
[2021-09-20 05:04] LABS: INR 2.2; Prothrombin Time 24.1 Seconds (9.4-12.1)
[2021-09-20] MEDS: Vancomycin 2,000 MG/520 ML IV.SOLN IVPB SCH (05:46)
[2021-09-20] MEDS ORDERED: Cefepime HCl 2,000 MG in 0.9 % Sodium Chloride 10 ML IVP SCH (06:00)
[2021-09-20] MEDS: DilTIAZem CD (24hr) 180 MG CAP.ER.24H PO SCH (08:50)
[2021-09-20] MEDS: Famotidine 20 MG TABLET PO SCH ×2 (08:51→20:07)
[2021-09-20] MEDS: *HR* Digoxin 0.125 MG TABLET PO SCH (08:51)
[2021-09-20] MEDS: Furosemide 40 MG TABLET PO SCH ×2 (08:52→20:07)
[2021-09-20] MEDS ORDERED: DilTIAZem CD (24hr) 180 MG CAP.ER.24H PO SCH ×2 (09:00→21:00)
[2021-09-20] MEDS: Cefepime HCl 2,000 MG in 0.9 % Sodium Chloride 10 ML IVP SCH ×2 (13:31→23:52)
[2021-09-20] MEDS ORDERED: cefTRIAXone 1,000 MG in 0.9 % Sodium Chloride 10 ML IVP SCH (17:00)
[2021-09-21] MEDS: Cefepime HCl 2,000 MG in 0.9 % Sodium Chloride 10 ML IVP SCH ×2 (05:45→18:32)
[2021-09-21] MEDS: Vancomycin 2,000 MG/520 ML IV.SOLN IVPB SCH (05:47)
[2021-09-21 05:49] LABS: Basophils # 0.1 K/mcL (0.0-0.2); Basophils % 1.3 %; Eosinophils # 0.3 K/mcL (0.0-0.6); Eosinophils % 3.1 %; Hematocrit 32.1 % (37.5-50.1); Hemoglobin 10.9 g/dL (12.9-16.9); Lymphocytes % 9.3 %; Mean Corpuscular Hemoglobin 36.2 pg (28.0-33.3); Mean Corpuscular Volume 106.6 fL (83.0-100.0); Monocytes # 0.7 K/mcL (0.0-1.3); Monocytes % 7.1 %; Neutrophils # 7.9 K/mcL (1.6-8.9); Nucleated Red Blood Cells 0.2 /100 WBC (0); Platelet Count 321 K/mcL (140-400); Red Blood Count 3.01 M/mcL (4.19-5.50); Red Cell Distribution Width 13.2 % (11.5-14.5); Segmented Neutrophils % 77.2 %; White Blood Count 10.2 K/mcL (4.3-11.1)
[2021-09-21 06:07] LABS: Calcium 9.9 mg/dL (8.6-10.3)
[2021-09-21] MEDS: Furosemide 40 MG TABLET PO SCH (08:46)
[2021-09-21] MEDS ORDERED: Metoprolol XL (24 HR) Succ 50 MG TAB.ER.24H PO SCH (09:00)
[2021-09-21] MEDS ORDERED: Famotidine 20 MG TABLET PO SCH (09:00)
[2021-09-21] MEDS: Famotidine 20 MG TABLET PO SCH (09:09)
[2021-09-21] MEDS: Metoprolol XL (24 HR) Succ 50 MG TAB.ER.24H PO SCH (09:10)
[2021-09-21] MEDS: *HR* Digoxin 0.125 MG TABLET PO SCH (09:11)
[2021-09-21] MEDS: Multivit/Ca/Min/Fe/FA 1 TAB TABLET PO SCH (09:11)
[2021-09-22 04:46] LABS: Basophils # 0.1 K/mcL (0.0-0.2); Eosinophils # 0.4 K/mcL (0.0-0.6); Eosinophils % 2.8 %; Hematocrit 32.4 % (37.5-50.1); Hemoglobin 11.2 g/dL (12.9-16.9); Immature Granulocytes % 1.9 % (0-4); Lymphocytes # 1.1 K/mcL (0.6-4.6); Lymphocytes % 8.8 %; Mean Corpuscular HGB Conc 34.6 g/dL (31.6-35.5); Mean Corpuscular Hemoglobin 36.7 pg (28.0-33.3); Mean Corpuscular Volume 106.2 fL (83.0-100.0); Monocytes # 0.7 K/mcL (0.0-1.3); Monocytes % 5.9 %; Neutrophils # 9.9 K/mcL (1.6-8.9); Nucleated Red Blood Cells 0.3 /100 WBC (0); Platelet Count 326 K/mcL (140-400); Red Blood Count 3.05 M/mcL (4.19-5.50); Red Cell Distribution Width 13.2 % (11.5-14.5); Segmented Neutrophils % 79.6 %; White Blood Count 12.4 K/mcL (4.3-11.1)
[2021-09-22 05:03] LABS: Calcium 9.7 mg/dL (8.6-10.3); Potassium 4.2 mEq/L (3.5-5.1)
[2021-09-22] MEDS: Vancomycin 2,000 MG/520 ML IV.SOLN IVPB SCH (05:38)
[2021-09-22] MEDS: Cefepime HCl 2,000 MG in 0.9 % Sodium Chloride 10 ML IVP SCH ×2 (05:40→17:09)
[2021-09-22] MEDS: Multivit/Ca/Min/Fe/FA 1 TAB TABLET PO SCH (08:56)
[2021-09-22] MEDS: Metoprolol XL (24 HR) Succ 50 MG TAB.ER.24H PO SCH (08:56)
[2021-09-22] MEDS: *HR* Digoxin 0.125 MG TABLET PO SCH (08:57)
[2021-09-22] MEDS: Famotidine 20 MG TABLET PO SCH (08:57)
[2021-09-22] MEDS ORDERED: Lidocaine -MPF 2% 5 ML VIAL ONE (11:33)
[2021-09-22] MEDS ORDERED: *HR* FentaNYL (PF) 100 MCG/2 ML VIAL ONE (11:34)
[2021-09-22] MEDS ORDERED: Ondansetron 4 MG/2 ML VIAL ONE (11:36)
[2021-09-22] MEDS: Ringers Solution, Lactated 1,000 ML IVC SCH (11:46)
[2021-09-22] MEDS ORDERED: *HR* HYDROmorphone PF 0.5 MG/0.5 ML SYRINGE IVP PRN (11:58)
[2021-09-22] MEDS ORDERED: *HR* FentaNYL (PF) 100 MCG/2 ML VIAL IVP PRN (11:58)
[2021-09-22] MEDS ORDERED: Vancomycin 1,000 MG, Sodium Chloride IRRigation 1,000 ML IR ONE (17:00)
[2021-09-23 06:04] LABS: Basophils # 0.1 K/mcL (0.0-0.2); Basophils % 0.3 %; Eosinophils % 0.1 %; Hematocrit 32.2 % (37.5-50.1); Hemoglobin 10.8 g/dL (12.9-16.9); Immature Granulocytes % 1.6 % (0-4); Lymphocytes # 0.5 K/mcL (0.6-4.6); Lymphocytes % 3.4 %; Mean Corpuscular HGB Conc 33.5 g/dL (31.6-35.5); Mean Corpuscular Hemoglobin 35.5 pg (28.0-33.3); Mean Corpuscular Volume 105.9 fL (83.0-100.0); Mean Platelet Volume 9.2 fL (9.4-12.4); Monocytes # 0.4 K/mcL (0.0-1.3); Monocytes % 2.8 %; Neutrophils # 14.2 K/mcL (1.6-8.9); Nucleated Red Blood Cells 0.2 /100 WBC (0); Platelet Count 325 K/mcL (140-400); Red Blood Count 3.04 M/mcL (4.19-5.50); Red Cell Distribution Width 13.1 % (11.5-14.5); Segmented Neutrophils % 91.8 %; White Blood Count 15.5 K/mcL (4.3-11.1)
[2021-09-23 06:18] LABS: BUN/Creatinine Ratio 20 (6-26); Blood Urea Nitrogen 28 mg/dL (8-23); Calcium 9.7 mg/dL (8.6-10.3); Carbon Dioxide 28 mEq/L (23-29); Chloride 99 mEq/L (98-107); Glucose 127 mg/dL (70-105); Osmolality,Calculated 287 (280-300); Potassium 4.6 mEq/L (3.5-5.1); Sodium 135 mEq/L (136-145); eGFR For African Americans > 60 (> 60); eGFR For Non-African Americans 52 (> 60)
[2021-09-23] MEDS: Vancomycin 2,000 MG/520 ML IV.SOLN IVPB SCH (06:19)
[2021-09-23] MEDS: Cefepime HCl 2,000 MG in 0.9 % Sodium Chloride 10 ML IVP SCH ×2 (06:19→17:17)
[2021-09-23] MEDS: Multivit/Ca/Min/Fe/FA 1 TAB TABLET PO SCH (08:04)
[2021-09-23] MEDS: Metoprolol XL (24 HR) Succ 50 MG TAB.ER.24H PO SCH (08:05)
[2021-09-23] MEDS: *HR* Digoxin 0.125 MG TABLET PO SCH (08:05)
[2021-09-23] MEDS: Famotidine 20 MG TABLET PO SCH (08:05)
[2021-09-23] MEDS: Ringers Solution, Lactated 1,000 ML IVC SCH (17:19)
[2021-09-24 05:57] LABS: INR 1.4; Prothrombin Time 15.4 Seconds (9.4-12.1)
[2021-09-24 06:09] LABS: BUN/Creatinine Ratio 21 (6-26); Blood Urea Nitrogen 26 mg/dL (8-23); Calcium 9.8 mg/dL (8.6-10.3); Carbon Dioxide 26 mEq/L (23-29); Chloride 99 mEq/L (98-107); Digoxin 0.6 ng/mL (0.8-2.0); Potassium 4.2 mEq/L (3.5-5.1); Sodium 136 mEq/L (136-145); eGFR For African Americans > 60 (> 60); eGFR For Non-African Americans 59 (> 60)
[2021-09-24 06:11] LABS: Basophils # 0.2 K/mcL (0.0-0.2); Basophils % 1.1 %; Eosinophils # 0.2 K/mcL (0.0-0.6); Eosinophils % 1.5 %; Hematocrit 32.9 % (37.5-50.1); Hemoglobin 11.1 g/dL (12.9-16.9); Immature Granulocytes % 2.4 % (0-4); Lymphocytes # 1.4 K/mcL (0.6-4.6); Lymphocytes % 9.9 %; Mean Corpuscular HGB Conc 33.7 g/dL (31.6-35.5); Mean Corpuscular Hemoglobin 35.7 pg (28.0-33.3); Mean Corpuscular Volume 105.8 fL (83.0-100.0); Mean Platelet Volume 9.1 fL (9.4-12.4); Monocytes # 0.8 K/mcL (0.0-1.3); Monocytes % 5.8 %; Nucleated Red Blood Cells 0.3 /100 WBC (0); Platelet Count 342 K/mcL (140-400); Red Blood Count 3.11 M/mcL (4.19-5.50); Red Cell Distribution Width 13.2 % (11.5-14.5); Segmented Neutrophils % 79.3 %; White Blood Count 13.9 K/mcL (4.3-11.1)
[2021-09-24] MEDS: Vancomycin 2,000 MG/520 ML IV.SOLN IVPB SCH (06:28)
[2021-09-24] MEDS: Cefepime HCl 2,000 MG in 0.9 % Sodium Chloride 10 ML IVP SCH ×3 (06:28→23:58)
[2021-09-24] MEDS: Multivit/Ca/Min/Fe/FA 1 TAB TABLET PO SCH (08:11)
[2021-09-24] MEDS: *HR* Digoxin 0.125 MG TABLET PO SCH (08:12)
[2021-09-24] MEDS: Metoprolol XL (24 HR) Succ 50 MG TAB.ER.24H PO SCH (08:12)
[2021-09-24] MEDS: Famotidine 20 MG TABLET PO SCH (08:21)
[2021-09-24 08:35] LABS: Glucose 101 mg/dL (70-105); Osmolality,Calculated 287 (280-300)
[2021-09-24] MEDS: DilTIAZem CD (24hr) 180 MG CAP.ER.24H PO SCH (09:36)
[2021-09-24 11:10] LABS: Estimated Average Glucose 128 mg/dl; Hemoglobin A1C 6.1 %
[2021-09-24] MEDS: Vancomycin 1,500 MG/265 ML IV.SOLN IVPB SCH (17:54)
[2021-09-24] MEDS: Ringers Solution, Lactated 1,000 ML IVC SCH (23:55)
[2021-09-25] MEDS: Vancomycin 1,500 MG/265 ML IV.SOLN IVPB SCH ×2 (05:57→17:11)
[2021-09-25 06:32] LABS: Basophils # 0.2 K/mcL (0.0-0.2); Basophils % 1.9 %; Eosinophils # 0.4 K/mcL (0.0-0.6); Eosinophils % 3.9 %; Hematocrit 33.9 % (37.5-50.1); Hemoglobin 10.8 g/dL (12.9-16.9); Immature Granulocytes % 3.8 % (0-4); Lymphocytes # 1.1 K/mcL (0.6-4.6); Lymphocytes % 10.1 %; Mean Corpuscular HGB Conc 31.9 g/dL (31.6-35.5); Mean Corpuscular Hemoglobin 34.7 pg (28.0-33.3); Mean Platelet Volume 9.1 fL (9.4-12.4); Monocytes # 0.8 K/mcL (0.0-1.3); Monocytes % 7.3 %; Neutrophils # 7.8 K/mcL (1.6-8.9); Nucleated Red Blood Cells 0.5 /100 WBC (0); Platelet Count 305 K/mcL (140-400); Red Blood Count 3.11 M/mcL (4.19-5.50); Red Cell Distribution Width 13.5 % (11.5-14.5); White Blood Count 10.7 K/mcL (4.3-11.1)
[2021-09-25 06:57] LABS: BUN/Creatinine Ratio 21 (6-26); Blood Urea Nitrogen 26 mg/dL (8-23); Calcium 9.5 mg/dL (8.6-10.3); Carbon Dioxide 28 mEq/L (23-29); Chloride 101 mEq/L (98-107); Digoxin 0.7 ng/mL (0.8-2.0); Glucose 105 mg/dL (70-105); Osmolality,Calculated 289 (280-300); Potassium 4.4 mEq/L (3.5-5.1); Sodium 137 mEq/L (136-145); eGFR For African Americans > 60 (> 60); eGFR For Non-African Americans 59 (> 60)
[2021-09-25] MEDS: Cefepime HCl 2,000 MG in 0.9 % Sodium Chloride 10 ML IVP SCH ×2 (07:54→15:13)
[2021-09-25] MEDS: Metoprolol XL (24 HR) Succ 50 MG TAB.ER.24H PO SCH (07:55)
[2021-09-25] MEDS: *HR* Digoxin 0.125 MG TABLET PO SCH (07:55)
[2021-09-25] MEDS: DilTIAZem CD (24hr) 180 MG CAP.ER.24H PO SCH (07:55)
[2021-09-25] MEDS: Multivit/Ca/Min/Fe/FA 1 TAB TABLET PO SCH (07:55)
[2021-09-25] MEDS: Famotidine 20 MG TABLET PO SCH (07:55)
[2021-09-25] MEDS: Ringers Solution, Lactated 1,000 ML IVC SCH (17:03)
[2021-09-25] MEDS: Loratadine 10 MG TABLET PO SCH (17:11)
[2021-09-26] MEDS: Cefepime HCl 2,000 MG in 0.9 % Sodium Chloride 10 ML IVP SCH ×3 (00:40→17:36)
[2021-09-26 05:21] LABS: Basophils # 0.2 K/mcL (0.0-0.2); Basophils % 1.5 %; Eosinophils # 0.6 K/mcL (0.0-0.6); Eosinophils % 4.8 %; Hematocrit 32.5 % (37.5-50.1); Hemoglobin 10.8 g/dL (12.9-16.9); Immature Granulocytes % 4.6 % (0-4); Lymphocytes # 0.9 K/mcL (0.6-4.6); Lymphocytes % 7.3 %; Mean Corpuscular HGB Conc 33.2 g/dL (31.6-35.5); Mean Corpuscular Hemoglobin 35.3 pg (28.0-33.3); Mean Corpuscular Volume 106.2 fL (83.0-100.0); Mean Platelet Volume 8.7 fL (9.4-12.4); Monocytes # 0.8 K/mcL (0.0-1.3); Monocytes % 7.1 %; Neutrophils # 8.8 K/mcL (1.6-8.9); Nucleated Red Blood Cells 0.5 /100 WBC (0); Platelet Count 290 K/mcL (140-400); Red Blood Count 3.06 M/mcL (4.19-5.50); Red Cell Distribution Width 13.3 % (11.5-14.5); Segmented Neutrophils % 74.7 %; White Blood Count 11.8 K/mcL (4.3-11.1)
[2021-09-26 05:40] LABS: BUN/Creatinine Ratio 20 (6-26); Blood Urea Nitrogen 27 mg/dL (8-23); Calcium 9.4 mg/dL (8.6-10.3); Carbon Dioxide 28 mEq/L (23-29); Chloride 100 mEq/L (98-107); Glucose 119 mg/dL (70-105); Magnesium 1.8 mg/dL (1.6-2.6); Osmolality,Calculated 286 (280-300); Potassium 4.4 mEq/L (3.5-5.1); Sodium 135 mEq/L (136-145); eGFR For African Americans > 60 (> 60); eGFR For Non-African Americans 53 (> 60)
[2021-09-26] MEDS ORDERED: 0.9 % Sodium Chloride 1,000 ML IVC SCH (07:45)
[2021-09-26] MEDS: Famotidine 20 MG TABLET PO SCH (07:58)
[2021-09-26] MEDS: *HR* Digoxin 0.125 MG TABLET PO SCH (07:59)
[2021-09-26] MEDS: Metoprolol XL (24 HR) Succ 50 MG TAB.ER.24H PO SCH (07:59)
[2021-09-26] MEDS: Multivit/Ca/Min/Fe/FA 1 TAB TABLET PO SCH (07:59)
[2021-09-26] MEDS: Loratadine 10 MG TABLET PO SCH (07:59)
[2021-09-26] MEDS: DilTIAZem CD (24hr) 180 MG CAP.ER.24H PO SCH (07:59)
[2021-09-26] MEDS: Vancomycin 1,250 MG/262.5 ML IV.SOLN IVPB SCH ×2 (08:02→17:37)
[2021-09-26] MEDS ORDERED: Loratadine 10 MG TABLET PO SCH (09:00)
[2021-09-27] MEDS: Vancomycin 1,250 MG/262.5 ML IV.SOLN IVPB SCH ×2 (06:16→19:19)
[2021-09-27 07:26] LABS: Basophils # 0.2 K/mcL (0.0-0.2); Basophils % 1.9 %; Eosinophils # 0.5 K/mcL (0.0-0.6); Eosinophils % 4.6 %; Hematocrit 34.2 % (37.5-50.1); Hemoglobin 11.2 g/dL (12.9-16.9); Immature Granulocytes % 4.9 % (0-4); Lymphocytes # 0.9 K/mcL (0.6-4.6); Lymphocytes % 8.1 %; Mean Corpuscular HGB Conc 32.7 g/dL (31.6-35.5); Mean Corpuscular Volume 106.9 fL (83.0-100.0); Monocytes # 0.7 K/mcL (0.0-1.3); Monocytes % 6.7 %; Neutrophils # 8.1 K/mcL (1.6-8.9); Nucleated Red Blood Cells 0.4 /100 WBC (0); Platelet Count 283 K/mcL (140-400); Red Cell Distribution Width 13.5 % (11.5-14.5); Segmented Neutrophils % 73.8 %
[2021-09-27 08:37] LABS: BUN/Creatinine Ratio 21 (6-26); Blood Urea Nitrogen 27 mg/dL (8-23); Calcium 9.4 mg/dL (8.6-10.3); Carbon Dioxide 27 mEq/L (23-29); Chloride 101 mEq/L (98-107); Glucose 117 mg/dL (70-105); Osmolality,Calculated 290 (280-300); Potassium 4.7 mEq/L (3.5-5.1); Sodium 137 mEq/L (136-145); eGFR For African Americans > 60 (> 60); eGFR For Non-African Americans 56 (> 60)
[2021-09-27] MEDS: Metoprolol XL (24 HR) Succ 50 MG TAB.ER.24H PO SCH (09:13)
[2021-09-27] MEDS: Loratadine 10 MG TABLET PO SCH (09:13)
[2021-09-27] MEDS: Famotidine 20 MG TABLET PO SCH (09:13)
[2021-09-27] MEDS: Cefepime HCl 2,000 MG in 0.9 % Sodium Chloride 10 ML IVP SCH ×3 (09:13→17:13)
[2021-09-27] MEDS: *HR* Digoxin 0.125 MG TABLET PO SCH (09:13)
[2021-09-27] MEDS: Multivit/Ca/Min/Fe/FA 1 TAB TABLET PO SCH (09:13)
[2021-09-27] MEDS: DilTIAZem CD (24hr) 180 MG CAP.ER.24H PO SCH (09:13)
[2021-09-28] MEDS: Cefepime HCl 2,000 MG in 0.9 % Sodium Chloride 10 ML IVP SCH (00:35)
[2021-09-28 05:07] LABS: Basophils # 0.2 K/mcL (0.0-0.2); Basophils % 1.9 %; Eosinophils # 0.5 K/mcL (0.0-0.6); Eosinophils % 4.4 %; Hematocrit 34.8 % (37.5-50.1); Hemoglobin 11.3 g/dL (12.9-16.9); Immature Granulocytes % 3.9 % (0-4); Lymphocytes # 1.2 K/mcL (0.6-4.6); Lymphocytes % 10.9 %; Mean Corpuscular HGB Conc 32.5 g/dL (31.6-35.5); Mean Corpuscular Hemoglobin 35.6 pg (28.0-33.3); Mean Corpuscular Volume 109.8 fL (83.0-100.0); Mean Platelet Volume 9.3 fL (9.4-12.4); Monocytes # 0.8 K/mcL (0.0-1.3); Monocytes % 7.3 %; Neutrophils # 7.6 K/mcL (1.6-8.9); Nucleated Red Blood Cells 0.5 /100 WBC (0); Platelet Count 288 K/mcL (140-400); Red Blood Count 3.17 M/mcL (4.19-5.50); Red Cell Distribution Width 13.4 % (11.5-14.5); Segmented Neutrophils % 71.6 %; White Blood Count 10.6 K/mcL (4.3-11.1)
[2021-09-28 05:25] LABS: BUN/Creatinine Ratio 20 (6-26); Blood Urea Nitrogen 27 mg/dL (8-23); Calcium 9.2 mg/dL (8.6-10.3); Carbon Dioxide 24 mEq/L (23-29); Chloride 102 mEq/L (98-107); Glucose 122 mg/dL (70-105); Osmolality,Calculated 284 (280-300); Potassium 4.3 mEq/L (3.5-5.1); Sodium 134 mEq/L (136-145); eGFR For African Americans > 60 (> 60); eGFR For Non-African Americans 54 (> 60)
[2021-09-28] MEDS: Vancomycin 1,250 MG/262.5 ML IV.SOLN IVPB SCH (06:05)
[2021-09-28] MEDS: DilTIAZem CD (24hr) 180 MG CAP.ER.24H PO SCH (08:51)
[2021-09-28] MEDS: Loratadine 10 MG TABLET PO SCH (08:51)
[2021-09-28] MEDS: Multivit/Ca/Min/Fe/FA 1 TAB TABLET PO SCH (08:51)
[2021-09-28] MEDS: *HR* Digoxin 0.125 MG TABLET PO SCH (08:51)
[2021-09-28] MEDS: Metoprolol XL (24 HR) Succ 50 MG TAB.ER.24H PO SCH (08:52)
[2021-09-28] MEDS: Famotidine 20 MG TABLET PO SCH (08:52)
[2021-09-29 04:41] LABS: Basophils # 0.2 K/mcL (0.0-0.2); Basophils % 1.5 %; Eosinophils # 0.5 K/mcL (0.0-0.6); Eosinophils % 4.2 %; Hematocrit 32.7 % (37.5-50.1); Hemoglobin 10.7 g/dL (12.9-16.9); Immature Granulocytes % 3.6 % (0-4); Lymphocytes # 1.3 K/mcL (0.6-4.6); Lymphocytes % 12.4 %; Mean Corpuscular HGB Conc 32.7 g/dL (31.6-35.5); Mean Corpuscular Hemoglobin 35.9 pg (28.0-33.3); Mean Corpuscular Volume 109.7 fL (83.0-100.0); Mean Platelet Volume 9.4 fL (9.4-12.4); Monocytes # 0.8 K/mcL (0.0-1.3); Monocytes % 7.8 %; Neutrophils # 7.5 K/mcL (1.6-8.9); Nucleated Red Blood Cells 0.3 /100 WBC (0); Platelet Count 258 K/mcL (140-400); Red Blood Count 2.98 M/mcL (4.19-5.50); Red Cell Distribution Width 13.5 % (11.5-14.5); Segmented Neutrophils % 70.5 %; White Blood Count 10.6 K/mcL (4.3-11.1)
[2021-09-29 04:46] LABS: BUN/Creatinine Ratio 17 (6-26); Blood Urea Nitrogen 23 mg/dL (8-23); Carbon Dioxide 30 mEq/L (23-29); Chloride 101 mEq/L (98-107); Glucose 120 mg/dL (70-105); Osmolality,Calculated 287 (280-300); Potassium 4.4 mEq/L (3.5-5.1); Sodium 136 mEq/L (136-145); eGFR For African Americans > 60 (> 60); eGFR For Non-African Americans 53 (> 60)
[2021-09-29] MEDS: *HR* Digoxin 0.125 MG TABLET PO SCH (08:17)
[2021-09-29] MEDS: Loratadine 10 MG TABLET PO SCH (08:17)
[2021-09-29] MEDS: Famotidine 20 MG TABLET PO SCH (08:17)
[2021-09-29] MEDS: Multivit/Ca/Min/Fe/FA 1 TAB TABLET PO SCH (08:18)
[2021-09-29] MEDS: Metoprolol XL (24 HR) Succ 50 MG TAB.ER.24H PO SCH (08:18)
[2021-09-29] MEDS: DilTIAZem CD (24hr) 180 MG CAP.ER.24H PO SCH (08:18)
[2021-09-29 15:28] VITALS: BP 114/74; PULSE 62; TEMP 97.8; O2SAT 99
== END 2021-09-29 19:27 | disposition home health service (06) | DRG 464 ==
LOC: EMEROOARM 15:55 → 4WAOSI 15:55 → SUATTDRO 18:00 → 4WAOSI 18:42
PROVIDERS: ADMIT Internal Medicine; ATTEND Pharmacist